=== PATIENT | female | born 1960 | race Caucasian/White ===

== ENCOUNTER 2020-06-01 12:35 | Emergency (ER) | payer OTHER ==
[2020-06-01 12:59] VITALS: O2SAT 99
--- NOTE | 2020-06-01 13:09 | ERPHSYRPT ---
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 This episode of chest pain was more sudden in onset approximate 1155 this afternoon it was in the center of her chest and described as a hot poker burning sensation that initially was 10 out of 10 and at the level of intensity. It then radiated into bilateral neck and bilateral shoulders. It significantly improved to a level of 3-4 out of 10 by the time she arrived in the emergency department. Patient states that she is under a lot of stress at this time. Patient has had a cardiac catheterization in the past and this was normal per her report. On 10/14/2019 patient underwent a chemical stress test and it was normal with a normal cardiac ejection fraction of 76% per the report. Patient's PCP is Dr. Villarreal. Timing/Duration: today Quality: burning, sharpness Location: substernal, central Chest Pain Radiation: neck, arm Severity of Pain-Max: moderate Severity of Pain-Current: mild Associated Symptoms: denies symptoms Prior Chest Pain/Cardiac Workup: cardiac cath Nitro Today/Relief: no nitro taken today Aspirin Treatment Today: no aspirin today (Patient is on Plavix. She also refuses aspirin today.) Allergies/Adverse Reactions: No Known Drug Allergies Allergy (Verified 12/13/15 06:20) Home Medications: Gabapentin [Neurontin] 600 mg PO DAILY 08/15/15 [History] Hyoscyamine Sulfate [Levsin] 0.125 mg PO QIDPRN PRN 08/15/15 [History] Pantoprazole Sodium [Protonix] 40 mg PO DAILY 08/15/15 [History] Ezetimibe 10 mg [Zetia 10 MG] 1 tab PO DAILY 12/07/15 [History] Rosuvastatin Calcium [Crestor] 1 tab PO DAILY 12/07/15 [History] Bupropion HCl Xl 150 mg [Wellbutrin XL 150 MG] 300 mg PO DAILY 06/01/20 [History] Clopidogrel Bisulfate 75 mg [PLAVIX 75 MG Tablet] 75 mg PO DAILY 06/01/20 [History] Venlafaxine HCl [Effexor Xr] 150 mg PO DAILY 06/01/20 [History] Hx Tetanus, Diphtheria Vaccination/Date Given: Yes Hx Influenza Vaccination/Date Given: Yes Hx Pneumococcal Vaccination/Date Given: No Travel Risk - International Travel Have you traveled outside of the country in past 3 weeks: No - Coronavirus Screening Are you exhibiting any of the following symptoms?: No Close contact with a COVID-19 positive Pt in past 14-21 Days: No - Review of Systems Constitutional: No Symptoms Eyes: No Symptoms Ears, Nose, & Throat: No Symptoms Respiratory: No Symptoms Cardiac: Chest Pain Abdominal/Gastrointestinal: No Symptoms Genitourinary Symptoms: No Symptoms Musculoskeletal: No Symptoms Skin: No Symptoms Neurological: No Symptoms Psychological: No Symptoms Endocrine: No Symptoms Hematologic/Lymphatic: No Symptoms Immunological/Allergic: No Symptoms All Other Systems: Reviewed and Negative - Past Medical History Pertinent Past Medical History: Yes Neurological History: Migraines, Peripheral Neuropathy ENT History: No Pertinent History Cardiac History: No Pertinent History Respiratory History: No Pertinent History Endocrine Medical History: No Pertinent History Musculoskeletal History: Degenerative Disk Disease, Fibromyalgia, Osteoarthritis GI Medical History: GERD, Irritable Bowel, Polyps, Ulcer History: Other Psycho-Social History: Depression Female Reproductive Disorders: Endometriosis Other Medical History: [facility] spotted fever, gotten by a tick, was very sick, in Hospital for 8-9 days. Used doxycycline - Past Surgical History Past Surgical History: Yes Neuro Surgical History: Other Cardiac: No Pertinent History, Cardiac Catheterization Respiratory: No Pertinent History Gastrointestinal: Cholecystectomy Genitourinary: No Pertinent History Musculoskeletal: No Pertinent History Female Surgical History: Section, Hysterectomy, Tubal Ligation Other Surgical History: left ear surgery patch, x two,tubal. d&c. colonoscopy x2-3 and. egd - Social History Smoking Status: Never smoker Exposure to second hand smoke: No Drug Use: none Patient Lives Alone: No - Nursing Vital Signs Nursing Vital Signs: Initial Vital Signs Temperature 98.5 F 06/01/20 12:35 Pulse Rate 75 06/01/20 12:35 Respiratory Rate 18 06/01/20 12:35 Blood Pressure 151/97 06/01/20 12:35 O2 Sat by Pulse Oximetry 99 06/01/20 12:35 Pain Scale Pain Intensity 6 - Physical Exam General Appearance: no apparent distress, alert, anxiety, thin Eye Exam: PERRL/EOMI, eyes nml inspection Ears, Nose, Throat Exam: normal ENT inspection, dry mucous membranes Neck Exam: normal inspection, non-tender, supple, full range of motion Respiratory Exam: normal breath sounds, chest tenderness, lungs clear, airway intact, No respiratory distress Cardiovascular Exam: regular rate/rhythm, normal heart sounds, normal peripheral pulses Gastrointestinal/Abdomen Exam: soft, normal bowel sounds, No tenderness Pelvic Exam: not done Rectal Exam: not done Back Exam: normal inspection, normal range of motion, No CVA tenderness, No vertebral tenderness Extremity Exam: normal inspection, normal range of motion, pelvis stable Neurologic Exam: alert, oriented x 3, cooperative, staff pharmacist II-XII nml as tested, normal mood/affect, nml cerebellar function, nml station & gait, sensation nml Skin Exam: normal color, warm, dry Lymphatic Exam: No adenopathy SpO2 Interpretation: normal SpO2: 99 O2 Delivery: Room Air - Course Nursing assessment & vital signs reviewed: Yes EKG Interpreted by Me: RATE ([id number]), Sinus Rhythm, NORMAL AXIS, NORMAL INTERVALS, NORMAL QRS, Other (No acute ischemic changes. There is no comparison EKG available.) Ordered Tests: Active Orders 24 hr Category Date Time Status EKG-ER Only STAT Care 06/01/20 13:09 Active IV Insertion STAT Care 06/01/20 13:09 Active Pulse Oximetry (ED) STAT Care 06/01/20 13:09 Active CHEST 1 VIEW (PORTABLE) Stat Exams 06/01/20 13:09 Completed CHEST WITH CONTRAST [CT] Stat Exams 06/01/20 14:10 Completed CBC W DIFF Stat Lab 06/01/20 13:20 Completed CMP Stat Lab 06/01/20 13:20 Completed D-DIMER QUANTITATIVE Stat Lab 06/01/20 13:20 Completed NT PRO BNP Stat Lab 06/01/20 13:20 Completed TROPONIN Q3H Lab 06/01/20 13:20 Completed TROPONIN Q3H Lab 06/01/20 16:15 Completed TROPONIN Q3H Lab 06/01/20 19:15 Ordered TROPONIN Q3H Lab 06/01/20 22:15 Ordered TROPONIN Q3H Lab 06/02/20 01:15 Ordered Medication Summary Discontinued Medications Generic Name Dose Route Start Last Admin Trade Name Freq PRN Reason Stop Dose Admin Sodium Chloride 500 mls @ 500 mls/hr 06/01/20 14:11 06/01/20 15:17 Sodium Chloride 0.9% 500 Ml IV 06/01/20 15:10 Infused .Q1H ONE Infusion Sodium Chloride Confirm 06/01/20 14:13 Sodium Chloride 0.9% 500 Ml Administered 06/01/20 14:14 Dose 500 mls @ ud IV .STK-MED ONE Lorazepam 1 mg 06/01/20 14:58 06/01/20 15:02 Ativan 2 Mg/1 Ml Vial IV 06/01/20 14:59 1 mg STAT ONE Administration Lorazepam Confirm 06/01/20 14:59 Ativan 2 Mg/1 Ml Vial Administered 06/01/20 15:00 Dose 2 mg .ROUTE .STK-MED ONE Morphine Sulfate 2 mg 06/01/20 14:02 06/01/20 14:17 Morphine Sulfate 2 Mg Inj IV 06/01/20 14:03 2 mg STAT ONE Administration Morphine Sulfate Confirm 06/01/20 14:13 Morphine Sulfate 2 Mg Inj Administered 06/01/20 14:14 Dose 2 mg .ROUTE .STK-MED ONE Ondansetron HCl 4 mg 06/01/20 14:02 06/01/20 14:17 Zofran 4 Mg/2 Ml Vial IV 06/01/20 14:03 4 mg STAT ONE Administration Ondansetron HCl Confirm 06/01/20 14:13 Zofran 4 Mg/2 Ml Vial Administered 06/01/20 14:14 Dose 4 mg .ROUTE .STK-MED ONE Ondansetron HCl 4 mg 06/01/20 16:56 06/01/20 17:18 Zofran 4 Mg/2 Ml Vial IV 06/01/20 16:57 Not Given STAT ONE Lab/Rad Data: Laboratory Result Diagrams 06/01/20 13:20 06/01/20 13:20 Laboratory Results 06/01/20 06/01/20 06/01/20 Range/Units 16:15 13:20 13:20 WBC (4.0-10.5) K/mm3 RBC (4.1-5.4) M/mm3 Hgb (12.0-16.0) gm/dl Hct (35-47) % MCV (78-100) fl MCH (26-32) pg MCHC (32-36) g/dl RDW (11.5-14.0) % Plt Count (150-450) K/mm3 MPV (7.5-11.0) fl Gran % (36.0-66.0) % Eos # (Auto) (0-0.5) Absolute Lymphs (auto) (1.0-4.6) Absolute Monos (auto) (0.0-1.3) Lymphocytes % (24.0-44.0) % Monocytes % (0.0-12.0) % Eosinophils % (0.00-5.0) % Basophils % (0.0-0.4) % Absolute Granulocytes (1.4-6.9) Basophils # (0-0.4) D-Dimer 734 H* (215-500) ng/mL Sodium (137-145) mmol/L Potassium (3.5-5.1) mmol/L Chloride (98-107) mmol/L Carbon Dioxide (22-30) mmol/L Anion Gap (5-15) MEQ/L BUN (7-17) mg/dL Creatinine (0.52-1.04) mg/dL Estimated GFR ML/MIN Glucose (74-106) mg/dL Calcium (8.4-10.2) mg/dL Total Bilirubin (0.2-1.3) mg/dL AST (14-36) U/L ALT (0-35) U/L Alkaline Phosphatase (38-126) U/L Troponin I < 0.012 < 0.012 (0.000-0.034) ng/mL NT-Pro-B Natriuret Pep (0-900) pg/mL Serum Total Protein (6.3-8.2) g/dL Albumin (3.5-5.0) g/dL 06/01/20 06/01/20 Range/Units 13:20 13:20 WBC 5.8 (4.0-10.5) K/mm3 RBC 4.37 (4.1-5.4) M/mm3 Hgb 13.2 (12.0-16.0) gm/dl Hct 40.3 (35-47) % MCV 92.2 (78-100) fl MCH 30.2 (26-32) pg MCHC 32.8 (32-36) g/dl RDW 13.3 (11.5-14.0) % Plt Count 215 (150-450) K/mm3 MPV 10.4 (7.5-11.0) fl Gran % 59.7 (36.0-66.0) % Eos # (Auto) 0.14 (0-0.5) Absolute Lymphs (auto) 1.69 (1.0-4.6) Absolute Monos (auto) 0.50 (0.0-1.3) Lymphocytes % 29.0 (24.0-44.0) % Monocytes % 8.6 (0.0-12.0) % Eosinophils % 2.4 (0.00-5.0) % Basophils % 0.3 (0.0-0.4) % Absolute Granulocytes 3.48 (1.4-6.9) Basophils # 0.02 (0-0.4) D-Dimer (215-500) ng/mL Sodium 134 L (137-145) mmol/L Potassium 3.7 (3.5-5.1) mmol/L Chloride 98 (98-107) mmol/L Carbon Dioxide 29 (22-30) mmol/L Anion Gap 11.1 (5-15) MEQ/L BUN 11 (7-17) mg/dL Creatinine 0.72 (0.52-1.04) mg/dL Estimated GFR > 60.0 ML/MIN Glucose 83 (74-106) mg/dL Calcium 9.5 (8.4-10.2) mg/dL Total Bilirubin 0.50 (0.2-1.3) mg/dL AST 73 H (14-36) U/L ALT 35 (0-35) U/L Alkaline Phosphatase 67 (38-126) U/L Troponin I (0.000-0.034) ng/mL NT-Pro-B Natriuret Pep 83.1 (0-900) pg/mL Serum Total Protein 7.6 (6.3-8.2) g/dL Albumin 4.6 (3.5-5.0) g/dL - Progress Progress: improved, re-examined Air Movement: good Progress Note: 06/01/20 14:09 Today's chest x-ray shows no acute cardiopulmonary process. 06/01/20 15:23 CAT scan of the chest with contrast reveals no pulmonary emboli. There is no acute pulmonary process present 06/01/20 17:05 Medical decision making: This patient is extremely anxious. Her chest pain has improved but not completely resolved. She is sleepy but completely arousable. She has had a clean cardiac catheterization as well as a negative cardiac stress test performed in September 2019. She has had 2 troponins that are now normal. She had an elevated D-dimer but the CTA of the chest revealed no pulmonary emboli. I contacted the patient's primary care physician, Dr. Villarreal. I reviewed the patient history, condition, EKG results, CTA results and the results of her labs. He feels that the patient does not need to be admitted for observation and rule out. This is based on the fact that she has had a normal, clean cardiac catheterization and a cardiac stress test that was negative. He is aware of both of these results. He feels that the patient can go home with a prescription for a few Ativan tablets. He states that she can follow-up in his office. She is to call his office tomorrow to make arranges for follow-up appo intment. 06/01/20 17:26 Medical decision making: I called the patient's fiber optics supervisor, Dr. Jung. I reviewed the patient history, condition, EKG findings, CTA of chest findings and the results of her laboratory work-up. He recommends providing the patient with a prescription for Lopressor 25 mg twice daily (short acting). He also recommends that the patient call his office tomorrow morning to make arranges for follow-up appointment. He also feels that the patient can be discharged to home in the recent normal cardiac catheterization and the normal cardiac stress test. Blood Culture(s) Obtained: No Antibiotics given: No Counseled pt/family regarding: lab results, diagnosis, need for follow-up, rad results - Departure Departure Disposition: Home Clinical Impression: Chest pain Condition: Stable Critical Care Time: No Referrals: ALEXI VILLARREAL MD [Primary Care Provider] - Additional Instructions: Take your new medication as prescribed beginning tomorrow morning. Follow-up with your fiber optics supervisor and primary care doctor for further management. Prescriptions: Lorazepam 0.5 mg [Ativan 0.5 MG] 0.5 mg PO Q12H PRN #3 tablet PRN Reason: Anxiety Metoprolol Tartrate 25 mg [Lopressor 25MG Tab] 25 mg PO BID #10 tab
[2020-06-01 13:33] LABS: Absolute Neutrophil Ct (ANC) 3.48 (1.4-6.9); BASOPHIL % 0.3 % (0.0-0.4); Basophil (Absolute #) 0.02 (0-0.4); Eosinophil % 2.4 % (0.00-5.0); Eosinophil (Absolute #) 0.14 (0-0.5); Hematocrit 40.3 % (35-47); Hemoglobin 13.2 gm/dl (12.0-16.0); Lymphocyte (Absolute #) 1.69 (1.0-4.6); Mean Cell Volume 92.2 fl (78-100); Mean Corpuscular Hemoglobin 30.2 pg (26-32); Mean Corpuscular Hgb Concent. 32.8 g/dl (32-36); Mean Platelet Volume 10.4 fl (7.5-11.0); Monocytes % 8.6 % (0.0-12.0); Neutrophil % 59.7 % (36.0-66.0); Platelet Count 215 K/mm3 (150-450); Red Blood Count 4.37 M/mm3 (4.1-5.4); Red Cell Distribution Width 13.3 % (11.5-14.0); White Blood Count 5.8 K/mm3 (4.0-10.5)
--- NOTE | 2020-06-01 13:35 | XRAY ---
Indication: Chest pain. Comparison: September 11, 2016. Portable chest again demonstrates normal heart and lungs with incidental tiny calcified granulomas. Bony thorax intact again with mild scoliosis. Impression: Continued nonacute chest with chronic features.
[2020-06-01] MEDS ORDERED: MORPHINE SULFATE 2 MG INJ IV ONE (14:02)
[2020-06-01] MEDS ORDERED: Zofran 4 MG/2 ML VIAL IV ONE ×2 (14:02→16:56)
[2020-06-01 14:04] LABS: ALBUMIN 4.6 g/dL (3.5-5.0); ALKALINE PHOSPHATASE 67 U/L (38-126); ANION GAP 11.1 MEQ/L (5-15); BLOOD UREA NITROGEN 11 mg/dL (7-17); CHLORIDE 98 mmol/L (98-107); Calcium 9.5 mg/dL (8.4-10.2); Carbon Dioxide 29 mmol/L (22-30); Creatinine 1 0.72 mg/dL (0.52-1.04); EST GLOMERULAR FILTRATION RATE > 60.0 ML/MIN; Glucose 83 mg/dL (74-106); NT PRO BNP 83.1 pg/mL (0-900); Potassium 3.7 mmol/L (3.5-5.1); SGOT/AST 73 U/L (14-36); SGPT/ALT 35 U/L (0-35); SODIUM 134 mmol/L (137-145); Total Protein 7.6 g/dL (6.3-8.2)
[2020-06-01] MEDS ORDERED: Sodium Chloride 0.9% 500 ML 500 ML IV ONE ×2 (14:11→14:13)
[2020-06-01] MEDS ORDERED: MORPHINE SULFATE 2 MG INJ ONE (14:13)
[2020-06-01] MEDS ORDERED: Zofran 4 MG/2 ML VIAL ONE (14:13)
[2020-06-01] MEDS ORDERED: Ativan 2 MG/1 ML VIAL IV ONE (14:58)
[2020-06-01] MEDS ORDERED: Ativan 2 MG/1 ML VIAL ONE (14:59)
--- NOTE | 2020-06-01 15:19 | XRAY ---
Indication: Chest pain. Elevated d-dimer. Multiple contiguous axial images obtained through the chest using 80 cc Isovue 370 contrast. Comparison: October 10, 2016. There is good opacification of the pulmonary arteries to include the lobar and segmental branches. No pulmonary embolus. Heart is not enlarged. Aorta is normal in course and caliber again with anatomic variant for aberrant right subclavian artery. Stable small mediastinal and bilateral hilar calcified nodes. No pathologic mediastinal/hilar lymphadenopathy. Lungs inflated again with tiny left upper and right lower lobe calcified granulomas and minimal bibasilar fibrosis/scarring. No suspicious pulmonary mass, infiltrate, or effusion. Bony thorax intact again with multilevel Schmorl nodes. Limited upper abdomen again demonstrates calcified spot granulomas and cholecystectomy clips. Impression: 1. Negative pulmonary embolus. 2. Again anatomic variant for aberrant right subclavian artery, chronic bony findings, and old granulomatous disease. 3. Remaining CT chest with contrast exam is negative.
[2020-06-01 17:33] VITALS: BP 130/85; PULSE 81
== END 2020-06-01 17:54 | disposition home or self-care (01) ==
LOC: ED 12:35
DX: R07.89 Other chest pain (principal); Z79.899 Other long term (current) drug therapy; Z79.01 Long term (current) use of anticoagulants
CPT/HCPCS: 36000; 36415; 71045; 71260; 80053; 83880; 84484; 85025; 85379; 93005; 94760; 96360; 96374; 96375; 99285; J2060; J2270; J2405

== ENCOUNTER 2022-07-14 15:41 | Inpatient (IN) | payer OTHER ==
--- NOTE | 2022-07-14 16:36 | ERPHSYRPT ---
- History of Present Illness Historian: patient Exam Limitations: no limitations Patient Subjective Stated Complaint: Pt c/o of pancreas pain that began today, pt did have nigerien food last night and had a abdoul Triage Nursing Assessment: Pt brought to the ER by EMS, hypertensive, rates pain as a 3 but it was a 10 before EMS picked her up and she took her medicine, pt has had chronic pancreatitis for over 10 years, no edema, has not eaten anything today, doesn't appear to be in any distress Physician History: 61 yo wf w epigastric pain x 90 minutes. Pain is currently 3/10 but was up to a 10. Pain occurred while at rest. Pt has a h/o recurrent pancreatitis. Pain radiates to her chest and back. She has had nausea wo vomiting. Pt states that she was mildly dyspneic w the pain. Fever/cough/coryza/diarrhea/melena/hematochezia/dysurian/hematuria all are denied. She has had a sarah/C-sec x2/TAHBSO. Timing/Duration: other (90 minutes) Activities at Onset: rest Quality: other (Pain) Abdominal Pain Onset Location: epigastric Pain Radiation: chest, back Severity of Pain-Max: severe Severity of Pain-Current: mild Modifying Factors: Improves With: nothing Associated Symptoms: back, chest pain, nausea Previous symptoms: same symptoms as today Allergies/Adverse Reactions: No Known Drug Allergies Allergy (Verified 07/14/22 15:56) Home Medications: Gabapentin [Neurontin] 600 mg PO UD 08/15/15 [History] Hyoscyamine Sulfate [Levsin] 0.125 mg PO QIDPRN PRN 08/15/15 [History] Pantoprazole Sodium [Protonix] 40 mg PO DAILY 08/15/15 [History] Ezetimibe 10 mg [Zetia 10 MG] 1 tab PO HS 12/07/15 [History] Rosuvastatin Calcium [Crestor] 10 mg PO HS 12/07/15 [History] Bupropion HCl Xl 150 mg [Wellbutrin XL 150 MG] 300 mg PO HS 06/01/20 [History] Clopidogrel Bisulfate [PLAVIX 75 MG Tablet] 37.5 mg PO DAILY 06/01/20 [H istory] Venlafaxine HCl [Effexor Xr] 150 mg PO DAILY 06/01/20 [History] Amlodipine Besylate 5 mg [Norvasc 5 mg] 2.5 mg PO DAILY 07/14/22 [History] Gabapentin [Neurontin ] 900 mg PO HS 07/14/22 [History] Hx Tetanus, Diphtheria Vaccination/Date Given: Yes Hx Influenza Vaccination/Date Given: Yes Hx Pneumococcal Vaccination/Date Given: No Travel Risk - International Travel Have you traveled outside of the country in past 3 weeks: No - Coronavirus Screening Are you exhibiting any of the following symptoms?: No Close contact with a COVID-19 positive Pt in past 14-21 Days: No - Vaccine Status Have you recieved a Covid-19 vaccination: Yes 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: [place] - Vaccination Dates Date of 2cond Vaccination (if applicable): 2020 - Review of Systems Constitutional: No Symptoms Eyes: No Symptoms Ears, Nose, & Throat: No Symptoms Respiratory: No Symptoms, Dyspnea Cardiac: No Symptoms, Chest Pain Abdominal/Gastrointestinal: No Symptoms, Abdominal Pain, Nausea Genitourinary Symptoms: No Symptoms Musculoskeletal: No Symptoms Skin: No Symptoms Neurological: No Symptoms Psychological: No Symptoms Endocrine: No Symptoms Hematologic/Lymphatic: No Symptoms Immunological/Allergic: No Symptoms - Past Medical History Pertinent Past Medical History: Yes Neurological History: Migraines, Peripheral Neuropathy ENT History: No Pertinent History Cardiac History: High Cholesterol, Hypertension Respiratory History: No Pertinent History Endocrine Medical History: No Pertinent History Musculoskeletal History: Arthritis, Osteoarthritis GI Medical History: GERD, Irritable Bowel, Polyps, Ulcer History: Other Psycho-Social History: Depression Female Reproductive Disorders: Endometriosis Other Medical History: Fibromyalgia - Past Surgical History Past Surgical History: Yes Neuro Surgical History: Other Cardiac: No Pertinent History, Cardiac Catheterization Respiratory: No Pertinent History Gastrointestinal: Cholecystectomy Genitourinary: No Pertinent History Musculoskeletal: No Pertinent History Female Surgical History: Section, Hysterectomy, Tubal Ligation Other Surgical History: left ear surgery patch, x two,tubal. d&c. colonoscopy x2-3 and. egd - Social History Smoking Status: Never smoker Exposure to second hand smoke: No Drug Use: none Patient Lives Alone: No - Nursing Vital Signs Nursing Vital Signs: Initial Vital Signs Temperature 97.7 F 07/14/22 15:42 Pulse Rate 71 07/14/22 15:42 Blood Pressure 150/89 07/14/22 15:42 O2 Sat by Pulse Oximetry 96 07/14/22 15:42 Pain Scale Pain Intensity 7 Hypertensive - Physical Exam General Appearance: no apparent distress Eye Exam: PERRL/EOMI, eyes nml inspection Ears, Nose, Throat Exam: normal ENT inspection, TMs normal, pharynx normal, moist mucous membranes Neck Exam: normal inspection, non-tender, supple, full range of motion, No meningismus, No mass, No Brudzinski, No Kernig's, No carotid bruit Respiratory Exam: normal breath sounds, lungs clear, airway intact Cardiovascular Exam: regular rate/rhythm, normal heart sounds, normal peripheral pulses, capillary refill <2 sec, No murmur Gastrointestinal/Abdomen Exam: soft, normal bowel sounds, tenderness (Moderate epigastric TTP wo guarding or rebound) Back Exam: normal inspection, normal range of motion, vertebral tenderness, No CVA tenderness Extremity Exam: normal inspection, normal range of motion Neurologic Exam: alert, oriented x 3, cooperative, 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, normal mood/affect, nml cerebellar function, nml station & gait, sensation nml, No motor deficits, No sensory deficit Skin Exam: normal color, warm, dry Lymphatic Exam: No adenopathy SpO2 Interpretation: normal SpO2: 96 O2 Delivery: Room Air - Course Nursing assessment & vital signs reviewed: Yes EKG Interpreted by Me: RATE (NSR/Rate70/Normal QT-QTc/Flat Twaves/No acute ST degment abnormalities/EKG#2/NSR/Rate72/Normal QT-QTc/Flat Twaves/No acute ST segment changes) - CT Exams Abdomen/Pelvis CT Interpretation: Tele-radiologist Report (CT ab-pelvis w IV [id number] changes/Nothing acute) Ordered Tests: Active Orders 24 hr Category Date Time Status EKG-ER Only STAT Care 07/14/22 16:48 Completed NPO Diet 07/14/22 20:58 Active ABDOMEN AND PELVIS W CONTRAST [CT] Stat Exams 07/14/22 17:34 Completed AMYLASE AM.LAB Lab 07/16/22 04:00 Ordered AMYLASE Stat Lab 07/14/22 16:15 Completed AMYLASE Stat Lab 07/14/22 19:00 Completed CBC W DIFF AM.LAB Lab 07/15/22 04:00 Ordered CBC W DIFF Stat Lab 07/14/22 16:15 Completed CMP AM.LAB Lab 07/15/22 04:00 Ordered CMP Stat Lab 07/14/22 16:15 Completed CMP Stat Lab 07/14/22 19:00 Completed LIPASE AM.LAB Lab 07/16/22 04:00 Ordered LIPASE Stat Lab 07/14/22 16:15 Completed LIPASE Stat Lab 07/14/22 19:00 Completed TROPONIN Q4H Lab 07/14/22 16:15 Completed TROPONIN Q4H Lab 07/14/22 18:54 Completed TROPONIN Q4H Lab 07/15/22 00:15 Ordered UA W/RFX UR CULTURE Stat Lab 07/14/22 16:03 Ordered Transfer Order Routine Transfer 07/14/22 Completed Medication Summary Generic Name Dose Route Start Last Admin Trade Name [place] PRN Reason Stop Dose Admin Hydromorphone HCl 1 mg 07/14/22 20:57 07/14/22 22:24 Hydromorphone 1 Mg/1ml Inj 1 Mg/Ml Syringe IV 07/19/22 20:56 1 mg Q4H PRN PRN Administration PAIN Sodium Chloride 1,000 mls @ 100 mls/hr 07/14/22 21:00 07/14/22 22:25 Sodium Chloride 0.9% 1000 Ml IV 08/13/22 20:59 100 mls/hr .Q10H CYRIL Administration Ondansetron HCl 4 mg 07/14/22 20:57 Ondansetron Hcl 4 Mg/2 Ml Vial IV 08/13/22 20:56 Q6H PRN PRN NAUSEA/VOMITING Discontinued Medications Generic Name Dose Route Start Last Admin Trade Name Phoenix PRN Reason Stop Dose Admin Fentanyl Citrate 50 mcg 07/14/22 16:38 07/14/22 16:45 Fentanyl Citrate 100 Mcg/2 Ml* Vial IV 07/14/22 16:39 50 mcg STAT ONE Administration Fentanyl Citrate Confirm 07/14/22 16:43 Fentanyl Citrate 100 Mcg/2 Ml* Vial Administered 07/14/22 16:44 Dose 100 mcg .ROUTE .STK-MED ONE Hydromorphone HCl 0.5 mg 07/14/22 17:09 07/14/22 17:15 Hydromorphone 1 Mg/1ml Inj 1 Mg/Ml Syringe IV 07/14/22 17:10 0.5 mg STAT ONE Administration Hydromorphone HCl Confirm 07/14/22 17:14 Hydromorphone 1 Mg/1ml Inj 1 Mg/Ml Syringe Administered 07/14/22 17:15 Dose 1 mg .ROUTE .STK-MED ONE Sodium Chloride 1,000 mls @ 999 mls/hr 07/14/22 17:24 07/14/22 21:53 Sodium Chloride 0.9% 1000 Ml IV 07/14/22 18:24 Infused .Q1H1M STA Infusion Sodium Chloride Confirm 07/14/22 17:29 Sodium Chloride 0.9% 1000 Ml Administered 07/14/22 17:30 Dose 1,000 mls @ ud .ROUTE .STK-MED ONE Ketorolac Tromethamine 15 mg 07/14/22 19:29 07/14/22 19:33 Ketorolac Tromethamine 30 Mg/Ml Inj IV 07/14/22 19:30 15 mg STAT ONE Administration Ketorolac Tromethamine Confirm 07/14/22 19:31 Ketorolac Tromethamine 30 Mg/Ml Inj Administered 07/14/22 19:32 Dose 30 mg .ROUTE .STK-MED ONE Ondansetron HCl 4 mg 07/14/22 16:38 07/14/22 16:45 Ondansetron Hcl 4 Mg/2 Ml Vial IV 07/14/22 16:39 4 mg STAT ONE Administration Ondansetron HCl Confirm 07/14/22 16:42 Ondansetron Hcl 4 Mg/2 Ml Vial Administered 07/14/22 16:43 Dose 4 mg .ROUTE .STK-MED ONE Lab/Rad Data: Laboratory Result Diagrams 07/14/22 16:15 07/14/22 19:00 Laboratory Results 07/14/22 07/14/22 07/14/22 Range/Units 20:54 19:00 18:54 WBC (4.0-10.5) x10^3/uL RBC (4.1-5.4) x10^6/uL Hgb (12.0-16.0) g/dL Hct (35-47) % MCV (78-100) fL MCH (26-32) pg MCHC (32-36) g/dL RDW (11.5-14.0) % Plt Count (150-450) x10^3/uL MPV (7.5-11.0) fL Gran % (36.0-66.0) % Immature Gran % (Auto) (0.00-0.4) % Nucleat RBC Rel Count (0.00-0.1) % Eos # (Auto) (0-0.5) x10^3/uL Immature Gran # (Auto) (0.00-0.03) x10^3u/L Absolute Lymphs (auto) (1.0-4.6) x10^3/uL Absolute Monos (auto) (0.0-1.3) x10^3/uL Absolute Nucleated RBC (0.00-0.01) x10^3u/L Lymphocytes % (24.0-44.0) % Monocytes % (0.0-12.0) % Eosinophils % (0.00-5.0) % Basophils % (0.0-0.4) % Absolute Granulocytes (1.4-6.9) x10^3/uL Basophils # (0-0.4) x10^3/uL Sodium 136 L (137-145) mmol/L Potassium 3.7 (3.5-5.1) mmol/L Chloride 102 (98-107) mmol/L Carbon Dioxide 27 (22-30) mmol/L Anion Gap 10.8 (5-15) MEQ/L BUN 9 (7-17) mg/dL Creatinine 0.63 (0.52-1.04) mg/dL Estimated GFR > 60.0 ML/MIN Glucose 84 (74-106) mg/dL Calcium 8.1 L (8.4-10.2) mg/dL Total Bilirubin 0.80 (0.2-1.3) mg/dL AST 289 H (14-36) U/L ALT 114 H (0-35) U/L Alkaline Phosphatase 147 H (38-126) U/L Troponin I < 0.012 (0.000-0.034) ng/mL Serum Total Protein 7.1 (6.3-8.2) g/dL Albumin 3.8 (3.5-5.0) g/dL Amylase 331 H (30-110) U/L Lipase 4822 H (23-300) U/L Influenza Type A Ag NEGATIVE (NEGATIVE) Influenza Type B Ag NEGATIVE (NEGATIVE) RSV (PCR) NEGATIVE (Negative) SARS-CoV-2 (PCR) NEGATIVE (NEGATIVE) 07/14/22 07/14/22 07/14/22 Range/Units 16:15 16:15 16:15 WBC 7.2 (4.0-10.5) x10^3/uL RBC 4.32 (4.1-5.4) x10^6/uL Hgb 12.4 (12.0-16.0) g/dL Hct 38.2 (35-47) % MCV 88.4 (78-100) fL MCH 28.7 (26-32) pg MCHC 32.5 (32-36) g/dL RDW 14.4 H (11.5-14.0) % Plt Count 249 (150-450) x10^3/uL MPV 9.9 (7.5-11.0) fL Gran % 78.1 H (36.0-66.0) % Immature Gran % (Auto) 0.1 (0.00-0.4) % Nucleat RBC Rel Count 0.0 (0.00-0.1) % Eos # (Auto) 0.17 (0-0.5) x10^3/uL Immature Gran # (Auto) 0.01 (0.00-0.03) x10^3u/L Absolute Lymphs (auto) 0.96 L (1.0-4.6) x10^3/uL Absolute Monos (auto) 0.42 (0.0-1.3) x10^3/uL Absolute Nucleated RBC 0.00 (0.00-0.01) x10^3u/L Lymphocytes % 13.3 L (24.0-44.0) % Monocytes % 5.8 (0.0-12.0) % Eosinophils % 2.4 (0.00-5.0) % Basophils % 0.3 (0.0-0.4) % Absolute Granulocytes 5.63 (1.4-6.9) x10^3/uL Basophils # 0.02 (0-0.4) x10^3/uL Sodium 135 L (137-145) mmol/L Potassium 3.7 (3.5-5.1) mmol/L Chloride 99 (98-107) mmol/L Carbon Dioxide 25 (22-30) mmol/L Anion Gap 13.9 (5-15) MEQ/L BUN 10 (7-17) mg/dL Creatinine 0.63 (0.52-1.04) mg/dL Estimated GFR > 60.0 ML/MIN Glucose 81 (74-106) mg/dL Calcium 8.9 (8.4-10.2) mg/dL Total Bilirubin 0.60 (0.2-1.3) mg/dL AST 66 H (14-36) U/L ALT 31 (0-35) U/L Alkaline Phosphatase 124 (38-126) U/L Troponin I < 0.012 (0.000-0.034) ng/mL Serum Total Protein 7.8 (6.3-8.2) g/dL Albumin 4.2 (3.5-5.0) g/dL Amylase 76 (30-110) U/L Lipase 149 (23-300) U/L Influenza Type A Ag (NEGATIVE) Influenza Type B Ag (NEGATIVE) RSV (PCR) (Negative) SARS-CoV-2 (PCR) (NEGATIVE) - Progress Progress: improved Progress Note: 07/14/22 16:39 Pt initially refused pain meds but later pain escalated, so 50mcg IV Fentanyl/4mg IV Zofran given 07/14/22 16:40 Nursing note and vital signs reviewed No food or housing insecurities noted Minimal improvement w 50mcg IV Fentanyl/4mg IV Zofran Moderate improvement w 0.5mg IV Dilaudid 1L NS bolus Obs per Dr. Orozco 15mg IV toradol Full code per pt After further history from , it appears that pt drinks alcohol 3-4 times a week 07/14/22 23:04 Discussed with : Laura Will see patient in: hospital (observation) Counseled pt/family regarding: lab results, diagnosis, rad results - Departure Departure Disposition: Observation Clinical Impression: Pancreatitis Condition: Stable Critical Care Time: No
[2022-07-14] MEDS ORDERED: Zofran 4 MG/2 ML VIAL IV ONE (16:38)
[2022-07-14] MEDS ORDERED: SUBLIMAZE 100 MCG/2 ML IV ONE (16:38)
[2022-07-14 16:41] LABS: Absolute Neutrophil Ct (ANC) 5.63 x10^3/uL (1.4-6.9); BASOPHIL % 0.3 % (0.0-0.4); Basophil (Absolute #) 0.02 x10^3/uL (0-0.4); Eosinophil % 2.4 % (0.00-5.0); Eosinophil (Absolute #) 0.17 x10^3/uL (0-0.5); Hematocrit 38.2 % (35-47); Hemoglobin 12.4 g/dL (12.0-16.0); IMMATURE GRAN # 0.01 x10^3u/L (0.00-0.03); IMMATURE GRAN % 0.1 % (0.00-0.4); Lymphocyte (Absolute #) 0.96 x10^3/uL (1.0-4.6); Lymphocytes % 13.3 % (24.0-44.0); Mean Cell Volume 88.4 fL (78-100); Mean Corpuscular Hemoglobin 28.7 pg (26-32); Mean Corpuscular Hgb Concent. 32.5 g/dL (32-36); Mean Platelet Volume 9.9 fL (7.5-11.0); Monocyte (Absolute #) 0.42 x10^3/uL (0.0-1.3); Monocytes % 5.8 % (0.0-12.0); Neutrophil % 78.1 % (36.0-66.0); Platelet Count 249 x10^3/uL (150-450); Red Blood Count 4.32 x10^6/uL (4.1-5.4); Red Cell Distribution Width 14.4 % (11.5-14.0); White Blood Count 7.2 x10^3/uL (4.0-10.5)
[2022-07-14] MEDS ORDERED: Zofran 4 MG/2 ML VIAL ONE (16:42)
[2022-07-14] MEDS ORDERED: SUBLIMAZE 100 MCG/2 ML ONE (16:43)
[2022-07-14 16:48] LABS: ALBUMIN 4.2 g/dL (3.5-5.0); ALKALINE PHOSPHATASE 124 U/L (38-126); AMYLASE 76 U/L (30-110); ANION GAP 13.9 MEQ/L (5-15); BLOOD UREA NITROGEN 10 mg/dL (7-17); CHLORIDE 99 mmol/L (98-107); Calcium 8.9 mg/dL (8.4-10.2); Carbon Dioxide 25 mmol/L (22-30); Creatinine 1 0.63 mg/dL (0.52-1.04); EST GLOMERULAR FILTRATION RATE > 60.0 ML/MIN; Glucose 81 mg/dL (74-106); LIPASE 149 U/L (23-300); Potassium 3.7 mmol/L (3.5-5.1); SGOT/AST 66 U/L (14-36); SGPT/ALT 31 U/L (0-35); SODIUM 135 mmol/L (137-145); Total Protein 7.8 g/dL (6.3-8.2)
[2022-07-14] MEDS ORDERED: Hydromorphone 1 mg/ml Injection IV ONE (17:09)
[2022-07-14] MEDS ORDERED: Hydromorphone 1 mg/ml Injection ONE (17:14)
[2022-07-14] MEDS ORDERED: Sodium Chloride 0.9% 1000 ML 1,000 ML IV STA (17:24)
[2022-07-14] MEDS ORDERED: Sodium Chloride 0.9% 1000 ML 1,000 ML ONE (17:29)
--- NOTE | 2022-07-14 19:28 | XRAY ---
Indication: Abdomen pain. Pancreatitis. Multiple contiguous axial images obtained through the abdomen and pelvis 80 cc Isovue 370 contrast. Comparison: May 12, 2013 Lung bases demonstrates dependent atelectasis. Tiny right posterior gutter calcified granuloma. Heart not enlarged. Noncontrasted stomach and bowel loops appear nonobstructed. Appendectomy, cholecystectomy, and hysterectomy reported. Prominent biliary tree, not unusual for cholecystectomy patient. No free fluid/air. Incidental splenic calcified granulomas. Remaining liver, pancreas, spleen, adrenal glands, kidneys, ureters, and bladder are unremarkable. Minimal aortic calcifications. No AAA or pathological retroperitoneal lymphadenopathy. Osseous structures intact with minimal degenerative changes throughout the spine and multilevel thoracolumbar Schmorl nodes, largest T10. Impression: 1. Chronic findings including arteriosclerotic disease, chronic bony findings, and old granulomatous disease. 2. Remaining CT abdomen/pelvis with contrast exam is negative. Comment: Preliminary interpretation made by [facility]. No critical discrepancy.
[2022-07-14] MEDS ORDERED: TORAdol 30 mg Injection IV ONE (19:29)
[2022-07-14] MEDS ORDERED: TORAdol 30 mg Injection ONE (19:31)
[2022-07-14 19:38] LABS: ALBUMIN 3.8 g/dL (3.5-5.0); ALKALINE PHOSPHATASE 147 U/L (38-126); AMYLASE 331 U/L (30-110); ANION GAP 10.8 MEQ/L (5-15); BLOOD UREA NITROGEN 9 mg/dL (7-17); CHLORIDE 102 mmol/L (98-107); Calcium 8.1 mg/dL (8.4-10.2); Carbon Dioxide 27 mmol/L (22-30); Creatinine 1 0.63 mg/dL (0.52-1.04); EST GLOMERULAR FILTRATION RATE > 60.0 ML/MIN; Glucose 84 mg/dL (74-106); Potassium 3.7 mmol/L (3.5-5.1); SGOT/AST 289 U/L (14-36); SGPT/ALT 114 U/L (0-35); SODIUM 136 mmol/L (137-145); Total Protein 7.1 g/dL (6.3-8.2)
[2022-07-14 19:56] LABS: LIPASE 4822 U/L (23-300)
[2022-07-14] MEDS ORDERED: Zofran 4 MG/2 ML VIAL IV PRN (20:57)
[2022-07-14 21:33] LABS: INFLUENZA A NEGATIVE (NEGATIVE); INFLUENZA B NEGATIVE (NEGATIVE); RESPIRATORY SYNCTIAL VIRUS NEGATIVE (Negative); SARS-CoV-2 Xpert Express NEGATIVE (NEGATIVE)
[2022-07-14] MEDS: Hydromorphone 1 mg/ml Injection IV PRN (22:24)
[2022-07-14] MEDS: Sodium Chloride 0.9% 1000 ML 1,000 ML IV SCH (22:25)
[2022-07-15 05:00] LABS: Absolute Neutrophil Ct (ANC) 3.15 x10^3/uL (1.4-6.9); BASOPHIL % 0.5 % (0.0-0.4); Basophil (Absolute #) 0.02 x10^3/uL (0-0.4); Eosinophil % 2.7 % (0.00-5.0); Eosinophil (Absolute #) 0.12 x10^3/uL (0-0.5); Hematocrit 39.8 % (35-47); Hemoglobin 12.8 g/dL (12.0-16.0); IMMATURE GRAN # 0.01 x10^3u/L (0.00-0.03); IMMATURE GRAN % 0.2 % (0.00-0.4); Lymphocyte (Absolute #) 0.78 x10^3/uL (1.0-4.6); Lymphocytes % 17.7 % (24.0-44.0); Mean Cell Volume 89.6 fL (78-100); Mean Corpuscular Hemoglobin 28.8 pg (26-32); Mean Corpuscular Hgb Concent. 32.2 g/dL (32-36); Mean Platelet Volume 10.1 fL (7.5-11.0); Monocyte (Absolute #) 0.33 x10^3/uL (0.0-1.3); Monocytes % 7.5 % (0.0-12.0); Neutrophil % 71.4 % (36.0-66.0); Platelet Count 227 x10^3/uL (150-450); Red Blood Count 4.44 x10^6/uL (4.1-5.4); Red Cell Distribution Width 14.7 % (11.5-14.0); White Blood Count 4.4 x10^3/uL (4.0-10.5)
[2022-07-15 06:15] LABS: ALBUMIN 3.7 g/dL (3.5-5.0); ALKALINE PHOSPHATASE 209 U/L (38-126); ANION GAP 10.4 MEQ/L (5-15); BLOOD UREA NITROGEN 8 mg/dL (7-17); CHLORIDE 104 mmol/L (98-107); Calcium 8.5 mg/dL (8.4-10.2); Carbon Dioxide 27 mmol/L (22-30); EST GLOMERULAR FILTRATION RATE > 60.0 ML/MIN; Glucose 90 mg/dL (74-106); Potassium 3.8 mmol/L (3.5-5.1); SGOT/AST 635 U/L (14-36); SGPT/ALT 323 U/L (0-35); SODIUM 138 mmol/L (137-145)
[2022-07-15] MEDS: Sodium Chloride 0.9% 1000 ML 1,000 ML IV SCH ×2 (08:15→19:52)
[2022-07-15] MEDS: Hydromorphone 1 mg/ml Injection IV PRN ×2 (09:24→15:13)
[2022-07-15 10:15] LABS: Appearance Clear (Clear); Bacteria None Seen /HPF (None Seen); Bilirubin Negative (Negative); Blood Negative (Negative); Epithelial Cells None Seen /HPF (None Seen); Glucose, Urine Negative (Negative); Hyaline Casts NONE SEEN /LPF (0-2); Ketones Negative (Negative); Leukocyte Esterase Negative (Negative); Nitrite Negative (Negative); Protein,Urine Dip Negative (Negative); RBC 0-2 /HPF (0-5); Specific Gravity 1.025 (1.005-1.030); WBC 0-2 /HPF (0-5)
[2022-07-15 10:18] LABS: ADD URINE CULTURE? NO (NO)
[2022-07-15] MEDS ORDERED: HYOSCYAMINE SULFATE 0.125 MG PO PRN (13:42)
[2022-07-15] MEDS ORDERED: NON-FORMULARY ITEM (Gabapentin [Neurontin] 600 MG Tablet) PO SCH (13:45)
[2022-07-15] MEDS: NORVASC 5 MG PO SCH (15:13)
[2022-07-15] MEDS: PLAVIX Tablet PO SCH (15:14)
[2022-07-15] MEDS: Effexor XR 75 MG PO SCH (15:14)
[2022-07-15] MEDS: NEURONTIN PO SCH (15:14)
[2022-07-15] MEDS: Protonix 40MG Tablet PO SCH (15:15)
--- NOTE | 2022-07-15 18:08 | PCM.HP ---
History of Present Illness - Chief Complaint Chief Complaint: pancreatitis History of Present Illness: is a 61 year old female pt of Dr. Butler with hx of chronic neck pain, chronic back pain, HTN, GERD, HLD, migraine, anxiety, panic attack, and fibromyalgia who was admitted through ER with acute pancreatitis. Her lipase was 4822. WBC 7.2. She was admitted, given IV fluids and pain meds. She was initially given IV fentanyl, which only helped minimally. IV toradol also ordered. IV dilaudid has helped the most. She has had issues off and on since 2013, when she had [place] Spotted Fever. She had to see GI DrGeetha (Noel) in [facility] afterward with pancreas issues - wanted to do a procedure at that time but pt didn't want it. Pt returned to her in 2016; was on hyosciamine and started taking it prn and has been doing well since yesterday. She ate malagasy food with a small abdoul and started having epigstric pain, can't describe it, radiating to chest/back/L upper arm. Had N, no vomiting. Mild SOB. Dizziness. Dx2d, watery. Currently pain 3-09/02, after pain meds. W/o dilaudid, 12/02. - Review of Systems Abdominal/Gastrointestinal: Abdominal Pain, Nausea, Diarrhea Musculoskeletal: Joint Pain (sprained L ankle 1.5 wks ago) Neurological: Dizziness Psychological: Anxiety, Depression, No Suicidal Ideations, No Homicidal Ideations Medications & Allergies Home Medications: Home Medication List Gabapentin [Neurontin] 600 mg PO UD 08/15/15 [History Confirmed 07/14/22] Hyoscyamine Sulfate [Levsin] 0.125 mg PO QIDPRN PRN 08/15/15 [History Confirmed 07/14/22] Pantoprazole Sodium [Protonix] 40 mg PO DAILY 08/15/15 [History Confirmed 07/14/22] Ezetimibe 10 mg [Zetia 10 MG] 1 tab PO HS 12/07/15 [History Confirmed 07/14/22] Rosuvastatin Calcium [Crestor] 10 mg PO HS 12/07/15 [History Confirmed 07/14/22] Bupropion HCl Xl 150 mg [Wellbutrin XL 150 MG] 300 mg PO HS 06/01/20 [History Confirmed 07/14/22] Clopidogrel Bisulfate [PLAVIX 75 MG Tablet] 37.5 mg PO DAILY 06/01/20 [History Confirmed 07/14/22] Metoprolol Tartrate 25 mg [Lopressor 25MG Tab] 25 mg PO BID #10 tab 06/01/20 [Rx Confirmed 07/14/22] Venlafaxine HCl [Effexor Xr] 150 mg PO DAILY 06/01/20 [History Confirmed 07/14/22] Amlodipine Besylate 5 mg [Norvasc 5 mg] 2.5 mg PO DAILY 07/14/22 [History Confirmed 07/14/22] Gabapentin [Neurontin ] 900 mg PO HS 07/14/22 [History Confirmed 07/14/22] Allergies/Adverse Reactions: Allergies Allergy/AdvReac Type Severity Reaction Status Date / Time No Known Drug Allergies Allergy Verified 07/14/22 15:56 - Past Medical History Past Medical History: Yes Neurological History: Migraines, Peripheral Neuropathy ENT History: No Pertinent History Cardiac History: High Cholesterol, Hypertension Respiratory History: No Pertinent History Endocrine Medical History: No Pertinent History Musculoskelatal History: Arthritis, Osteoarthritis GI Medical History: GERD, Irritable Bowel, Polyps, Ulcer History: Other Pyscho-Social History: Depression Reproductive Disorders: Endometriosis Comment: Fibromyalgia - Female History Are you now?: No - Past Surgical History Past Surgical History: Yes Neuro Surgical History: Other Cardiac History: No Pertinent History, Cardiac Catheterization Respiratory Surgery: No Pertinent History GI Surgical History: Cholecystectomy Genitourinary Surgical Hx: No Pertinent History Musculskeletal Surgical Hx: No Pertinent History Female Surgical History: Section, Hysterectomy, Tubal Ligation Other Surgical History: left ear surgery patch, x two,tubal. d&c. colonoscopy x2-3 and. egd - Social History Smoking Status: Never smoker Exposure to second hand smoke: No Alcohol: Occasionally Drug Use: none - Physical Exam Vital Signs: Vital Signs - 24 hr Temp Pulse Resp BP Pulse Ox 07/15/22 16:52 93 L 07/15/22 16:00 98.1 F 67 18 139/67 92 L 07/15/22 12:00 17 07/15/22 11:19 98.0 F 67 16 104/55 93 L 07/15/22 08:00 16 07/15/22 07:31 98 07/15/22 07:24 97.6 F 63 16 126/74 97 07/15/22 04:00 97.8 F 71 16 123/73 98 07/15/22 00:00 98.3 F 64 118/77 96 07/14/22 23:06 96 07/14/22 22:28 98.3 F 64 16 118/77 95 07/14/22 20:11 69 16 111/74 93 L 07/14/22 19:37 73 16 113/82 94 L 07/14/22 19:19 73 17 93 L General Appearance: no apparent distress, alert Neurologic Exam: oriented x 3, cooperative Eye Exam: eyes nml inspection Ears, Nose, Throat Exam: moist mucous membranes Neck Exam: normal inspection, non-tender, No lymphadenopathy, No subcutaneous emphysema, No thyromegaly Respiratory Exam: normal breath sounds, lungs clear, No crackles/rales, No rhonchi, No wheezing Cardiovascular Exam: regular rate/rhythm, normal heart sounds, No murmur Gastrointestinal/Abdomen Exam: soft, normal bowel sounds, tenderness (RUQ, epigastrum), No distention, No mass, No guarding, No rebound Back Exam: normal inspection, No CVA tenderness, No rash Extremity Exam: normal inspection, No pedal edema, No swelling Skin Exam: normal color, warm, dry, No rash Results - Labs Lab/Micro Results: Lab Results-Last 24 Hours 07/14/22 07/14/22 07/14/22 Range/Units 09:30 18:54 19:00 WBC (4.0-10.5) x10^3/uL RBC (4.1-5.4) x10^6/uL Hgb (12.0-16.0) g/dL Hct (35-47) % MCV (78-100) fL MCH (26-32) pg MCHC (32-36) g/dL RDW (11.5-14.0) % Plt Count (150-450) x10^3/uL MPV (7.5-11.0) fL Gran % (36.0-66.0) % Immature Gran % (Auto) (0.00-0.4) % Nucleat RBC Rel Count (0.00-0.1) % Eos # (Auto) (0-0.5) x10^3/uL Immature Gran # (Auto) (0.00-0.03) x10^3u/L Absolute Lymphs (auto) (1.0-4.6) x10^3/uL Absolute Monos (auto) (0.0-1.3) x10^3/uL Absolute Nucleated RBC (0.00-0.01) x10^3u/L Lymphocytes % (24.0-44.0) % Monocytes % (0.0-12.0) % Eosinophils % (0.00-5.0) % Basophils % (0.0-0.4) % Absolute Granulocytes (1.4-6.9) x10^3/uL Basophils # (0-0.4) x10^3/uL Sodium 136 L (137-145) mmol/L Potassium 3.7 (3.5-5.1) mmol/L Chloride 102 (98-107) mmol/L Carbon Dioxide 27 (22-30) mmol/L Anion Gap 10.8 (5-15) MEQ/L BUN 9 (7-17) mg/dL Creatinine 0.63 (0.52-1.04) mg/dL Estimated GFR > 60.0 ML/MIN Glucose 84 (74-106) mg/dL Calcium 8.1 L (8.4-10.2) mg/dL Total Bilirubin 0.80 (0.2-1.3) mg/dL AST 289 H (14-36) U/L ALT 114 H (0-35) U/L Alkaline Phosphatase 147 H (38-126) U/L Troponin I < 0.012 (0.000-0.034) ng/mL Serum Total Protein 7.1 (6.3-8.2) g/dL Albumin 3.8 (3.5-5.0) g/dL Amylase 331 H (30-110) U/L Lipase 4822 H (23-300) U/L Urine Color Dark Yellow A (Yellow) Urine Appearance Clear (Clear) Urine pH 6.0 (4.6-8.0) Ur Specific [place] 1.025 (1.005-1.030) Urine Protein Negative (Negative) Urine Glucose (UA) Negative (Negative) mg/dL Urine Ketones Negative (Negative) Urine Blood Negative (Negative) Urine Nitrite Negative (Negative) Urine Bilirubin Negative (Negative) Urine Urobilinogen 2.0 A (0.2) mg/dL Ur Leukocyte Esterase Negative (Negative) U Hyaline Cast (Auto) NONE SEEN (0-2) /LPF Urine Microscopic RBC 0-2 (0-5) /HPF Urine Microscopic WBC 0-2 (0-5) /HPF Ur Epithelial Cells None Seen (None Seen) /HPF Urine Bacteria None Seen (None Seen) /HPF Urine Culture Reflexed NO (NO) Influenza Type A Ag (NEGATIVE) Influenza Type B Ag (NEGATIVE) RSV (PCR) (Negative) SARS-CoV-2 (PCR) (NEGATIVE) 07/14/22 07/15/22 07/15/22 Range/Units 20:54 04:45 04:45 WBC 4.4 (4.0-10.5) x10^3/uL RBC 4.44 (4.1-5.4) x10^6/uL Hgb 12.8 (12.0-16.0) g/dL Hct 39.8 (35-47) % MCV 89.6 (78-100) fL MCH 28.8 (26-32) pg MCHC 32.2 (32-36) g/dL RDW 14.7 H (11.5-14.0) % Plt Count 227 (150-450) x10^3/uL MPV 10.1 (7.5-11.0) fL Gran % 71.4 H (36.0-66.0) % Immature Gran % (Auto) 0.2 (0.00-0.4) % Nucleat RBC Rel Count 0.0 (0.00-0.1) % Eos # (Auto) 0.12 (0-0.5) x10^3/uL Immature Gran # (Auto) 0.01 (0.00-0.03) x10^3u/L Absolute Lymphs (auto) 0.78 L (1.0-4.6) x10^3/uL Absolute Monos (auto) 0.33 (0.0-1.3) x10^3/uL Absolute Nucleated RBC 0.00 (0.00-0.01) x10^3u/L Lymphocytes % 17.7 L (24.0-44.0) % Monocytes % 7.5 (0.0-12.0) % Eosinophils % 2.7 (0.00-5.0) % Basophils % 0.5 (0.0-0.4) % Absolute Granulocytes 3.15 (1.4-6.9) x10^3/uL Basophils # 0.02 (0-0.4) x10^3/uL Sodium (137-145) mmol/L Potassium (3.5-5.1) mmol/L Chloride (98-107) mmol/L Carbon Dioxide (22-30) mmol/L Anion Gap (5-15) MEQ/L BUN (7-17) mg/dL Creatinine (0.52-1.04) mg/dL Estimated GFR ML/MIN Glucose (74-106) mg/dL Calcium (8.4-10.2) mg/dL Total Bilirubin (0.2-1.3) mg/dL AST (14-36) U/L ALT (0-35) U/L Alkaline Phosphatase (38-126) U/L Troponin I < 0.012 (0.000-0.034) ng/mL Serum Total Protein (6.3-8.2) g/dL Albumin (3.5-5.0) g/dL Amylase (30-110) U/L Lipase (23-300) U/L Urine Color (Yellow) Urine Appearance (Clear) Urine pH (4.6-8.0) Ur Specific [place] (1.005-1.030) Urine Protein (Negative) Urine Glucose (UA) (Negative) mg/dL Urine Ketones (Negative) Urine Blood (Negative) Urine Nitrite (Negative) Urine Bilirubin (Negative) Urine Urobilinogen (0.2) mg/dL Ur Leukocyte Esterase (Negative) U Hyaline Cast (Auto) (0-2) /LPF Urine Microscopic RBC (0-5) /HPF Urine Microscopic WBC (0-5) /HPF Ur Epithelial Cells (None Seen) /HPF Urine Bacteria (None Seen) /HPF Urine Culture Reflexed (NO) Influenza Type A Ag NEGATIVE (NEGATIVE) Influenza Type B Ag NEGATIVE (NEGATIVE) RSV (PCR) NEGATIVE (Negative) SARS-CoV-2 (PCR) NEGATIVE (NEGATIVE) 07/15/22 Range/Units 04:45 WBC (4.0-10.5) x10^3/uL RBC (4.1-5.4) x10^6/uL Hgb (12.0-16.0) g/dL Hct (35-47) % MCV (78-100) fL MCH (26-32) pg MCHC (32-36) g/dL RDW (11.5-14.0) % Plt Count (150-450) x10^3/uL MPV (7.5-11.0) fL Gran % (36.0-66.0) % Immature Gran % (Auto) (0.00-0.4) % Nucleat RBC Rel Count (0.00-0.1) % Eos # (Auto) (0-0.5) x10^3/uL Immature Gran # (Auto) (0.00-0.03) x10^3u/L Absolute Lymphs (auto) (1.0-4.6) x10^3/uL Absolute Monos (auto) (0.0-1.3) x10^3/uL Absolute Nucleated RBC (0.00-0.01) x10^3u/L Lymphocytes % (24.0-44.0) % Monocytes % (0.0-12.0) % Eosinophils % (0.00-5.0) % Basophils % (0.0-0.4) % Absolute Granulocytes (1.4-6.9) x10^3/uL Basophils # (0-0.4) x10^3/uL Sodium 138 (137-145) mmol/L Potassium 3.8 (3.5-5.1) mmol/L Chloride 104 (98-107) mmol/L Carbon Dioxide 27 (22-30) mmol/L Anion Gap 10.4 (5-15) MEQ/L BUN 8 (7-17) mg/dL Creatinine 0.60 (0.52-1.04) mg/dL Estimated GFR > 60.0 ML/MIN Glucose 90 (74-106) mg/dL Calcium 8.5 (8.4-10.2) mg/dL Total Bilirubin 1.00 (0.2-1.3) mg/dL AST 635 H (14-36) U/L ALT 323 H (0-35) U/L Alkaline Phosphatase 209 H (38-126) U/L Troponin I (0.000-0.034) ng/mL Serum Total Protein 7.0 (6.3-8.2) g/dL Albumin 3.7 (3.5-5.0) g/dL Amylase (30-110) U/L Lipase (23-300) U/L Urine Color (Yellow) Urine Appearance (Clear) Urine pH (4.6-8.0) Ur Specific [place] (1.005-1.030) Urine Protein (Negative) Urine Glucose (UA) (Negative) mg/dL Urine Ketones (Negative) Urine Blood (Negative) Urine Nitrite (Negative) Urine Bilirubin (Negative) Urine Urobilinogen (0.2) mg/dL Ur Leukocyte Esterase (Negative) U Hyaline Cast (Auto) (0-2) /LPF Urine Microscopic RBC (0-5) /HPF Urine Microscopic WBC (0-5) /HPF Ur Epithelial Cells (None Seen) /HPF Urine Bacteria (None Seen) /HPF Urine Culture Reflexed (NO) Influenza Type A Ag (NEGATIVE) Influenza Type B Ag (NEGATIVE) RSV (PCR) (Negative) SARS-CoV-2 (PCR) (NEGATIVE) - Radiology Impressions Radiology Exams & Impressions: Radiology Procedures Category Date Time Status ABDOMEN AND PELVIS W CONTRAST [CT] Stat Exams 07/14/22 17:34 Completed - Other Procedures and Tests Respiratory Therapy 07/15/22 07:31 Oxygen NASAL CANNULA 2 lpm Assessment/Plan (1) Pancreatitis Current Visit: Yes Status: Acute Qualifiers: Chronicity: acute Pancreatitis type: idiopathic Acute pancreatitis complication: no infection or necrosis Qualified Code(s): K85.00 - Idiopathic acute pancreatitis without necrosis or infection Assessment & Plan: Sounds like acute on chronic. I advised no amount of alcohol is safe for her to drink. Concern with elevated LFTs this morning - rechecking them. Fluid bolus. Code(s): K85.90 - ACUTE PANCREATITIS WITHOUT NECROSIS OR INFECTION, UNSP (2) Elevated liver enzymes Current Visit: Yes Status: Acute Code(s): R74.8 - ABNORMAL LEVELS OF OTHER SERUM ENZYMES (3) Chest pain Current Visit: No Status: Resolved Qualifiers: Chest pain type: other chest pain Qualified Code(s): R07.89 - Other chest pain; R07.8 - Other chest pain Assessment & Plan: NE ruled out with 3 neg trop Code(s): R07.9 - CHEST PAIN, UNSPECIFIED (4) Hypertension Current Visit: Yes Status: Chronic Qualifiers: Hypertension type: primary hypertension Qualified Code(s): I10 - Essential (primary) hypertension Code(s): I10 - ESSENTIAL (PRIMARY) HYPERTENSION (5) GERD (gastroesophageal reflux disease) Current Visit: Yes Status: Chronic Qualifiers: Esophagitis presence: without esophagitis Qualified Code(s): K21.9 - Gastro-esophageal reflux disease without esophagitis Code(s): K21.9 - GASTRO-ESOPHAGEAL REFLUX DISEASE WITHOUT ESOPHAGITIS (6) Fibromyalgia Current Visit: Yes Status: Chronic (7) Diarrhea Current Visit: Yes Status: Acute Qualifiers: Diarrhea type: unspecified type Qualified Code(s): R19.7 - Diarrhea, unspecified Assessment & Plan: check c. diff if has again. Code(s): R19.7 - DIARRHEA, UNSPECIFIED (8) Alcohol use Current Visit: Yes Status: Acute Assessment & Plan: Pt says hasn't drunk any EtOH for 2 weeks, then admits to the [facility] 2d ago. Her and daughter told staff pt is inebriated 4-5 nights /week. Start CIWA protocol. Code(s): Z78.9 - OTHER SPECIFIED HEALTH STATUS
[2022-07-15] MEDS ORDERED: Sodium Chloride 0.9% 1000 ML 1,000 ML IV STA (18:10)
[2022-07-15] MEDS ORDERED: Ativan 2 MG/1 ML VIAL IV PRN ×2 (18:45→20:00)
[2022-07-15 18:49] LABS: ALBUMIN 3.9 g/dL (3.5-5.0); ALKALINE PHOSPHATASE 279 U/L (38-126); ANION GAP 13.4 MEQ/L (5-15); BLOOD UREA NITROGEN 7 mg/dL (7-17); CHLORIDE 103 mmol/L (98-107); Calcium 8.8 mg/dL (8.4-10.2); Carbon Dioxide 23 mmol/L (22-30); Creatinine 1 0.56 mg/dL (0.52-1.04); EST GLOMERULAR FILTRATION RATE > 60.0 ML/MIN; Glucose 52 mg/dL (74-106); Potassium 3.5 mmol/L (3.5-5.1); SGOT/AST 388 U/L (14-36); SGPT/ALT 271 U/L (0-35); SODIUM 137 mmol/L (137-145); Total Protein 7.3 g/dL (6.3-8.2)
[2022-07-15 18:56] LABS: LIPASE 3692 U/L (23-300)
[2022-07-15] MEDS ORDERED: Ativan 2 MG/1 ML VIAL ONE (19:17)
[2022-07-15] MEDS ORDERED: Ativan 2 MG/1 ML VIAL IV ONE (19:59)
[2022-07-15] MEDS ORDERED: NON-FORMULARY ITEM (Rosuvastatin Calcium [Crestor] 20 MG Tablet) PO SCH (22:00)
[2022-07-16] MEDS: Lopressor 25MG Tab PO SCH ×3 (02:00→22:49)
[2022-07-16] MEDS: ZOCOR 20MG PO SCH ×2 (02:01→22:49)
[2022-07-16] MEDS: Wellbutrin XL 150 MG PO SCH ×2 (02:01→22:50)
[2022-07-16] MEDS: NEURONTIN PO SCH ×4 (02:01→22:49)
[2022-07-16 04:56] LABS: Absolute Neutrophil Ct (ANC) 2.78 x10^3/uL (1.4-6.9); BASOPHIL % 0.9 % (0.0-0.4); Basophil (Absolute #) 0.04 x10^3/uL (0-0.4); Eosinophil % 3.3 % (0.00-5.0); Eosinophil (Absolute #) 0.15 x10^3/uL (0-0.5); Hematocrit 37.1 % (35-47); Hemoglobin 12.3 g/dL (12.0-16.0); IMMATURE GRAN # 0.01 x10^3u/L (0.00-0.03); IMMATURE GRAN % 0.2 % (0.00-0.4); Lymphocyte (Absolute #) 1.14 x10^3/uL (1.0-4.6); Lymphocytes % 25.2 % (24.0-44.0); Mean Cell Volume 86.7 fL (78-100); Mean Corpuscular Hemoglobin 28.7 pg (26-32); Mean Corpuscular Hgb Concent. 33.2 g/dL (32-36); Mean Platelet Volume 9.9 fL (7.5-11.0); Monocytes % 8.8 % (0.0-12.0); Neutrophil % 61.6 % (36.0-66.0); Platelet Count 243 x10^3/uL (150-450); Red Blood Count 4.28 x10^6/uL (4.1-5.4); Red Cell Distribution Width 14.7 % (11.5-14.0); White Blood Count 4.5 x10^3/uL (4.0-10.5)
[2022-07-16 05:15] LABS: ALBUMIN 3.8 g/dL (3.5-5.0); ALKALINE PHOSPHATASE 241 U/L (38-126); AMYLASE 269 U/L (30-110); ANION GAP 8.9 MEQ/L (5-15); BLOOD UREA NITROGEN 3 mg/dL (7-17); CHLORIDE 101 mmol/L (98-107); Calcium 8.5 mg/dL (8.4-10.2); Carbon Dioxide 28 mmol/L (22-30); Creatinine 1 0.52 mg/dL (0.52-1.04); EST GLOMERULAR FILTRATION RATE > 60.0 ML/MIN; Glucose 98 mg/dL (74-106); LIPASE 794 U/L (23-300); Potassium 3.3 mmol/L (3.5-5.1); SGOT/AST 232 U/L (14-36); SGPT/ALT 222 U/L (0-35); SODIUM 134 mmol/L (137-145)
[2022-07-16] MEDS: Sodium Chloride 0.9% 1000 ML 1,000 ML IV SCH ×2 (05:26→15:17)
[2022-07-16] MEDS: PLAVIX Tablet PO SCH (08:56)
[2022-07-16] MEDS: NORVASC 5 MG PO SCH (08:56)
--- NOTE | 2022-07-16 08:56 | PCM.NOTE ---
Date and Time: 07/16/22 0851 Subjective Assessment: Pt is feeling better, says she is just "sore," will not give me # from 0-10/10. I woke her and she is somewhat somnolent; oriented to place, thinks date is "probably July,." Sagar CLD. - Review of Systems Constitutional: No Fever Respiratory: No Cough Abdominal/Gastrointestinal: Abdominal Pain Objective Exam General Appearance: no apparent distress, other (somnolent, but wakes to repeated questions) Neurologic Exam: cooperative Skin Exam: normal color, warm, dry, No rash Eye Exam: eyes nml inspection Ears, Nose, Throat Exam: moist mucous membranes Respiratory Exam: normal breath sounds, lungs clear, No crackles/rales, No rhonchi, No wheezing Cardiovascular Exam: regular rate/rhythm, normal heart sounds, No murmur Gastrointestinal/Abdomen Exam: soft, normal bowel sounds, tenderness (epig astrum; very mildly ttp generalized), No distention, No mass, No guarding, No rebound Extremity Exam: normal inspection, No pedal edema, No swelling Back Exam: normal inspection, No rash OBJECTIVE DATA Vital Signs: Vital Signs - 24 hr Temp Pulse Resp BP Pulse Ox 07/16/22 08:00 16 07/16/22 07:17 97.7 F 81 16 138/80 96 07/16/22 07:03 91 L 07/16/22 04:00 98.0 F 84 16 156/82 94 L 07/15/22 23:37 97.0 F 92 H 16 129/81 95 07/15/22 21:17 91 H 20 07/15/22 20:43 93 H 97 07/15/22 20:00 16 07/15/22 19:35 96.9 F 84 16 138/71 99 07/15/22 18:41 91 L 07/15/22 16:52 93 L 07/15/22 16:00 98.1 F 67 18 139/67 92 L 07/15/22 12:00 17 07/15/22 11:19 98.0 F 67 16 104/55 93 L Pain Assessment - Last Documented Pain Intensity 0 Pain Scale Used 0-10 Pain Scale Intake and Output: Intake & Output 07/13/22 07/14/22 07/15/22 07/16/22 11:59 11:59 11:59 11:59 Intake Total 4500 2192 Output Total 600 5500 Balance 804 -9913 Weight 77.5 kg Lab Results: Lab Results-Last 24 Hours 07/14/22 07/15/22 07/16/22 Range/Units 09:30 18:30 01:51 WBC (4.0-10.5) x10^3/uL RBC (4.1-5.4) x10^6/uL Hgb (12.0-16.0) g/dL Hct (35-47) % MCV (78-100) fL MCH (26-32) pg MCHC (32-36) g/dL RDW (11.5-14.0) % Plt Count (150-450) x10^3/uL MPV (7.5-11.0) fL Gran % (36.0-66.0) % Immature Gran % (Auto) (0.00-0.4) % Nucleat RBC Rel Count (0.00-0.1) % Eos # (Auto) (0-0.5) x10^3/uL Immature Gran # (Auto) (0.00-0.03) x10^3u/L Absolute Lymphs (auto) (1.0-4.6) x10^3/uL Absolute Monos (auto) (0.0-1.3) x10^3/uL Absolute Nucleated RBC (0.00-0.01) x10^3u/L Lymphocytes % (24.0-44.0) % Monocytes % (0.0-12.0) % Eosinophils % (0.00-5.0) % Basophils % (0.0-0.4) % Absolute Granulocytes (1.4-6.9) x10^3/uL Basophils # (0-0.4) x10^3/uL Sodium 137 (137-145) mmol/L Potassium 3.5 (3.5-5.1) mmol/L Chloride 103 (98-107) mmol/L Carbon Dioxide 23 (22-30) mmol/L Anion Gap 13.4 (5-15) MEQ/L BUN 7 (7-17) mg/dL Creatinine 0.56 (0.52-1.04) mg/dL Estimated GFR > 60.0 ML/MIN Glucose 52 L (74-106) mg/dL POC Glucometer 94 (74 to 106) mg/dL Calcium 8.8 (8.4-10.2) mg/dL Total Bilirubin 0.80 (0.2-1.3) mg/dL AST 388 H (14-36) U/L ALT 271 H (0-35) U/L Alkaline Phosphatase 279 H (38-126) U/L Serum Total Protein 7.3 (6.3-8.2) g/dL Albumin 3.9 (3.5-5.0) g/dL Amylase (30-110) U/L Lipase 3692 H (23-300) U/L Urine Color Dark Yellow A (Yellow) Urine Appearance Clear (Clear) Urine pH 6.0 (4.6-8.0) Ur Specific [place] 1.025 (1.005-1.030) Urine Protein Negative (Negative) Urine Glucose (UA) Negative (Negative) mg/dL Urine Ketones Negative (Negative) Urine Blood Negative (Negative) Urine Nitrite Negative (Negative) Urine Bilirubin Negative (Negative) Urine Urobilinogen 2.0 A (0.2) mg/dL Ur Leukocyte Esterase Negative (Negative) U Hyaline Cast (Auto) NONE SEEN (0-2) /LPF Urine Microscopic RBC 0-2 (0-5) /HPF Urine Microscopic WBC 0-2 (0-5) /HPF Ur Epithelial Cells None Seen (None Seen) /HPF Urine Bacteria None Seen (None Seen) /HPF Urine Culture Reflexed NO (NO) 07/16/22 07/16/22 Range/Units 04:39 04:39 WBC 4.5 (4.0-10.5) x10^3/uL RBC 4.28 (4.1-5.4) x10^6/uL Hgb 12.3 (12.0-16.0) g/dL Hct 37.1 (35-47) % MCV 86.7 (78-100) fL MCH 28.7 (26-32) pg MCHC 33.2 (32-36) g/dL RDW 14.7 H (11.5-14.0) % Plt Count 243 (150-450) x10^3/uL MPV 9.9 (7.5-11.0) fL Gran % 61.6 (36.0-66.0) % Immature Gran % (Auto) 0.2 (0.00-0.4) % Nucleat RBC Rel Count 0.0 (0.00-0.1) % Eos # (Auto) 0.15 (0-0.5) x10^3/uL Immature Gran # (Auto) 0.01 (0.00-0.03) x10^3u/L Absolute Lymphs (auto) 1.14 (1.0-4.6) x10^3/uL Absolute Monos (auto) 0.40 (0.0-1.3) x10^3/uL Absolute Nucleated RBC 0.00 (0.00-0.01) x10^3u/L Lymphocytes % 25.2 (24.0-44.0) % Monocytes % 8.8 (0.0-12.0) % Eosinophils % 3.3 (0.00-5.0) % Basophils % 0.9 (0.0-0.4) % Absolute Granulocytes 2.78 (1.4-6.9) x10^3/uL Basophils # 0.04 (0-0.4) x10^3/uL Sodium 134 L (137-145) mmol/L Potassium 3.3 L (3.5-5.1) mmol/L Chloride 101 (98-107) mmol/L Carbon Dioxide 28 (22-30) mmol/L Anion Gap 8.9 (5-15) MEQ/L BUN 3 L (7-17) mg/dL Creatinine 0.52 (0.52-1.04) mg/dL Estimated GFR > 60.0 ML/MIN Glucose 98 (74-106) mg/dL POC Glucometer (74 to 106) mg/dL Calcium 8.5 (8.4-10.2) mg/dL Total Bilirubin 0.40 (0.2-1.3) mg/dL AST 232 H (14-36) U/L ALT 222 H (0-35) U/L Alkaline Phosphatase 241 H (38-126) U/L Serum Total Protein 7.0 (6.3-8.2) g/dL Albumin 3.8 (3.5-5.0) g/dL Amylase 269 H (30-110) U/L Lipase 794 H (23-300) U/L Urine Color (Yellow) Urine Appearance (Clear) Urine pH (4.6-8.0) Ur Specific [place] (1.005-1.030) Urine Protein (Negative) Urine Glucose (UA) (Negative) mg/dL Urine Ketones (Negative) Urine Blood (Negative) Urine Nitrite (Negative) Urine Bilirubin (Negative) Urine Urobilinogen (0.2) mg/dL Ur Leukocyte Esterase (Negative) U Hyaline Cast (Auto) (0-2) /LPF Urine Microscopic RBC (0-5) /HPF Urine Microscopic WBC (0-5) /HPF Ur Epithelial Cells (None Seen) /HPF Urine Bacteria (None Seen) /HPF Urine Culture Reflexed (NO) Radiology Exams: Radiology Procedures Category Date Time Status ABDOMEN AND PELVIS W CONTRAST [CT] Stat Exams 07/14/22 17:34 Completed LIVER OR SPLEEN [US] Routine Exams 07/16/22 08:50 Ordered Assessment/Plan (1) Pancreatitis Current Visit: Yes Status: Acute Qualifiers: Chronicity: acute Pancreatitis type: idiopathic Acute pancreatitis complication: no infection or necrosis Qualified Code(s): K85.00 - Idiopathic acute pancreatitis without necrosis or infection Assessment & Plan: Improved, with lipase 794 this morning (>4000 on admission). Continue IVF and advance diet slowly (likely to bland tomorrow). Code(s): K85.90 - ACUTE PANCREATITIS WITHOUT NECROSIS OR INFECTION, UNSP (2) Elevated liver enzymes Current Visit: Yes Status: Acute Assessment & Plan: Enzymes were normal just prior to admission. Will check liver u/s. Was worried for obstruction yesterday with acute increase in LFTs from 200s to 600 (ALT), but have decreased this morning. Still elevated. Check hepatitis panel, PT/PTT as well. May be due to acute illness. Plt are nl. Code(s): R74.8 - ABNORMAL LEVELS OF OTHER SERUM ENZYMES (3) Chest pain Current Visit: No Status: Resolved Qualifiers: Chest pain type: other chest pain Qualified Code(s): R07.89 - Other chest pain; R07.8 - Other chest pain Code(s): R07.9 - CHEST PAIN, UNSPECIFIED (4) Hypertension Current Visit: Yes Status: Chronic Qualifiers: Hypertension type: primary hypertension Qualified Code(s): I10 - Essential (primary) hypertension Code(s): I10 - ESSENTIAL (PRIMARY) HYPERTENSION (5) GERD (gastroesophageal reflux disease) Current Visit: Yes Status: Chronic Qualifiers: Esophagitis presence: without esophagitis Qualified Code(s): K21.9 - Gastro-esophageal reflux disease without esophagitis Code(s): K21.9 - GASTRO-ESOPHAGEAL REFLUX DISEASE WITHOUT ESOPHAGITIS (6) Fibromyalgia Current Visit: Yes Status: Chronic (7) Diarrhea Current Visit: Yes Status: Resolved Qualifiers: Diarrhea type: unspecified type Qualified Code(s): R19.7 - Diarrhea, unspecified Code(s): R19.7 - DIARRHEA, UNSPECIFIED (8) Alcohol use Current Visit: Yes Status: Acute Code(s): Z78.9 - OTHER SPECIFIED HEALTH STATUS
[2022-07-16] MEDS: Effexor XR 75 MG PO SCH (08:57)
[2022-07-16] MEDS: Protonix 40MG Tablet PO SCH (08:57)
[2022-07-16 09:37] LABS: INR 1.02 (0.8-3.0); PROTIME 11.1 SECONDS (9.4-12.5); PTT 27.9 SECONDS (25.1-36.5)
[2022-07-16] MEDS ORDERED: NON-FORMULARY ITEM (Venlafaxine Hcl [Effexor Xr] 150 MG Cap.Er.24h) PO SCH (10:00)
--- NOTE | 2022-07-16 10:35 | XRAY ---
Indication: Elevated liver function test. Cholecystectomy. Two-dimensional right upper quadrant abdominal sonogram performed. Comparison: None Visualized liver appears homogeneous in echogenicity without hepatomegaly or ascites. Gallbladder surgically absent. Common bile duct measures 10.2 mm. No intrahepatic biliary distention. Remaining visualized pancreas and right kidney are sonographically unremarkable. Right kidney measures 9.4 cm in length. Impression: Cholecystectomy in a otherwise negative right upper quadrant sonogram.
[2022-07-16] MEDS: Hydromorphone 1 mg/ml Injection IV PRN ×2 (13:14→17:45)
[2022-07-16] MEDS: Klor Con PO SCH ×4 (13:17→23:00)
[2022-07-16] MEDS ORDERED: Klor Con PO ONE (18:42)
[2022-07-17] MEDS: Sodium Chloride 0.9% 1000 ML 1,000 ML IV SCH ×3 (00:18→20:01)
[2022-07-17] MEDS: Hydromorphone 1 mg/ml Injection IV PRN ×4 (02:28→20:00)
[2022-07-17 04:58] LABS: Absolute Neutrophil Ct (ANC) 2.53 x10^3/uL (1.4-6.9); BASOPHIL % 0.9 % (0.0-0.4); Basophil (Absolute #) 0.04 x10^3/uL (0-0.4); Eosinophil % 4.3 % (0.00-5.0); Hematocrit 39.2 % (35-47); Hemoglobin 12.7 g/dL (12.0-16.0); IMMATURE GRAN # 0.01 x10^3u/L (0.00-0.03); IMMATURE GRAN % 0.2 % (0.00-0.4); Lymphocyte (Absolute #) 1.35 x10^3/uL (1.0-4.6); Lymphocytes % 29.1 % (24.0-44.0); Mean Cell Volume 87.5 fL (78-100); Mean Corpuscular Hemoglobin 28.3 pg (26-32); Mean Corpuscular Hgb Concent. 32.4 g/dL (32-36); Mean Platelet Volume 9.8 fL (7.5-11.0); Monocyte (Absolute #) 0.51 x10^3/uL (0.0-1.3); Neutrophil % 54.5 % (36.0-66.0); Platelet Count 245 x10^3/uL (150-450); Red Blood Count 4.48 x10^6/uL (4.1-5.4); Red Cell Distribution Width 14.6 % (11.5-14.0); White Blood Count 4.6 x10^3/uL (4.0-10.5)
[2022-07-17 05:29] LABS: ALBUMIN 3.8 g/dL (3.5-5.0); ALKALINE PHOSPHATASE 282 U/L (38-126); ANION GAP 9.4 MEQ/L (5-15); BLOOD UREA NITROGEN 3 mg/dL (7-17); CHLORIDE 103 mmol/L (98-107); Calcium 8.9 mg/dL (8.4-10.2); Carbon Dioxide 28 mmol/L (22-30); Creatinine 1 0.56 mg/dL (0.52-1.04); EST GLOMERULAR FILTRATION RATE > 60.0 ML/MIN; Glucose 95 mg/dL (74-106); Potassium 4.1 mmol/L (3.5-5.1); SGOT/AST 206 U/L (14-36); SGPT/ALT 203 U/L (0-35); SODIUM 137 mmol/L (137-145); Total Protein 7.2 g/dL (6.3-8.2)
--- NOTE | 2022-07-17 09:04 | PCM.NOTE ---
Date and Time: 07/17/22901 Subjective Assessment: patient reports pain is improving. has had some withdrawal symptoms related to ETOH, she is tolerating liquids and overall improving. Objective Exam General Appearance: no apparent distress Neurologic Exam: alert, oriented x 3 Skin Exam: normal color, warm, dry Respiratory Exam: normal breath sounds, lungs clear, No respiratory distress Cardiovascular Exam: regular rate/rhythm, normal heart sounds Gastrointestinal/Abdomen Exam: soft, tenderness (minimal epigastrium), No guarding, No rebound Extremity Exam: normal inspection, normal range of motion OBJECTIVE DATA Vital Signs: Vital Signs - 24 hr Temp Pulse Resp BP Pulse Ox 07/17/22 07:09 97.6 F 61 16 129/78 96 07/17/22 06:55 96 07/17/22 04:00 97.8 F 66 16 121/75 92 L 07/16/22 23:56 98.4 F 70 16 139/75 95 07/16/22 20:00 98.4 F 70 18 138/80 95 07/16/22 18:55 94 L 07/16/22 16:00 97.6 F 70 16 128/80 97 07/16/22 12:00 16 07/16/22 11:20 97.8 F 70 16 131/65 96 Pain Assessment - Last Documented Pain Intensity 3 Pain Scale [facility] Intake and Output: Intake & Output 07/14/22 07/15/22 07/16/22 07/17/22 11:59 11:59 11:59 11:59 Intake Total 1404 3462 4341 Output Total 600 6200 3951 Balance 804 -8 390 Weight 77.5 kg Lab Results: Lab Results-Last 24 Hours 07/16/22 07/16/22 07/16/22 Range/Units 09:32 15:57 18:11 WBC (4.0-10.5) x10^3/uL RBC (4.1-5.4) x10^6/uL Hgb (12.0-16.0) g/dL Hct (35-47) % MCV (78-100) fL MCH (26-32) pg MCHC (32-36) g/dL RDW (11.5-14.0) % Plt Count (150-450) x10^3/uL MPV (7.5-11.0) fL Gran % (36.0-66.0) % Immature Gran % (Auto) (0.00-0.4) % Nucleat RBC Rel Count (0.00-0.1) % Eos # (Auto) (0-0.5) x10^3/uL Immature Gran # (Auto) (0.00-0.03) x10^3u/L Absolute Lymphs (auto) (1.0-4.6) x10^3/uL Absolute Monos (auto) (0.0-1.3) x10^3/uL Absolute Nucleated RBC (0.00-0.01) x10^3u/L Lymphocytes % (24.0-44.0) % Monocytes % (0.0-12.0) % Eosinophils % (0.00-5.0) % Basophils % (0.0-0.4) % Absolute Granulocytes (1.4-6.9) x10^3/uL Basophils # (0-0.4) x10^3/uL PT 11.1 (9.4-12.5) SECONDS INR 1.02 (0.8-3.0) APTT 27.9 (25.1-36.5) SECONDS Sodium (137-145) mmol/L Potassium 3.7 3.9 (3.5-5.1) mmol/L Chloride (98-107) mmol/L Carbon Dioxide (22-30) mmol/L Anion Gap (5-15) MEQ/L BUN (7-17) mg/dL Creatinine (0.52-1.04) mg/dL Estimated GFR ML/MIN Glucose (74-106) mg/dL Calcium (8.4-10.2) mg/dL Total Bilirubin (0.2-1.3) mg/dL AST (14-36) U/L ALT (0-35) U/L Alkaline Phosphatase (38-126) U/L Serum Total Protein (6.3-8.2) g/dL Albumin (3.5-5.0) g/dL 07/16/22 07/17/22 07/17/22 Range/Units 22:05 04:50 04:50 WBC 4.6 (4.0-10.5) x10^3/uL RBC 4.48 (4.1-5.4) x10^6/uL Hgb 12.7 (12.0-16.0) g/dL Hct 39.2 (35-47) % MCV 87.5 (78-100) fL MCH 28.3 (26-32) pg MCHC 32.4 (32-36) g/dL RDW 14.6 H (11.5-14.0) % Plt Count 245 (150-450) x10^3/uL MPV 9.8 (7.5-11.0) fL Gran % 54.5 (36.0-66.0) % Immature Gran % (Auto) 0.2 (0.00-0.4) % Nucleat RBC Rel Count 0.0 (0.00-0.1) % Eos # (Auto) 0.20 (0-0.5) x10^3/uL Immature Gran # (Auto) 0.01 (0.00-0.03) x10^3u/L Absolute Lymphs (auto) 1.35 (1.0-4.6) x10^3/uL Absolute Monos (auto) 0.51 (0.0-1.3) x10^3/uL Absolute Nucleated RBC 0.00 (0.00-0.01) x10^3u/L Lymphocytes % 29.1 (24.0-44.0) % Monocytes % 11.0 (0.0-12.0) % Eosinophils % 4.3 (0.00-5.0) % Basophils % 0.9 (0.0-0.4) % Absolute Granulocytes 2.53 (1.4-6.9) x10^3/uL Basophils # 0.04 (0-0.4) x10^3/uL PT (9.4-12.5) SECONDS INR (0.8-3.0) APTT (25.1-36.5) SECONDS Sodium 137 (137-145) mmol/L Potassium 3.9 4.1 (3.5-5.1) mmol/L Chloride 103 (98-107) mmol/L Carbon Dioxide 28 (22-30) mmol/L Anion Gap 9.4 (5-15) MEQ/L BUN 3 L (7-17) mg/dL Creatinine 0.56 (0.52-1.04) mg/dL Estimated GFR > 60.0 ML/MIN Glucose 95 (74-106) mg/dL Calcium 8.9 (8.4-10.2) mg/dL Total Bilirubin 0.50 (0.2-1.3) mg/dL AST 206 H (14-36) U/L ALT 203 H (0-35) U/L Alkaline Phosphatase 282 H (38-126) U/L Serum Total Protein 7.2 (6.3-8.2) g/dL Albumin 3.8 (3.5-5.0) g/dL Radiology Exams: Radiology Procedures Category Date Time Status LIVER OR SPLEEN [US] Routine Exams 07/16/22 08:50 Completed Multi-Disciplinary Progress Notes: Multi-Disciplinary Progress Notes 07/16/22 10:43 Case Management Note by Lissette Ji Spoke with patient and she states still plans to return home with spouse. States has no new needs Initialized on 07/16/22 10:43 - END OF NOTE Assessment/Plan (1) Acute alcoholic pancreatitis Current Visit: Yes Status: Acute Assessment & Plan: check pancreas enzymes, LFTs are slowly improving. will continue current diet and monitor but clinically improving. will cover CIWA protocol with po ativan PRN Code(s): K85.20 - ALCOHOL INDUCED ACUTE PANCREATITIS WITHOUT NECROSIS OR INFCT
[2022-07-17 09:26] LABS: AMYLASE 215 U/L (30-110); LIPASE 1998 U/L (23-300)
[2022-07-17] MEDS: Protonix 40MG Tablet PO SCH (10:04)
[2022-07-17] MEDS: Lopressor 25MG Tab PO SCH (10:05)
[2022-07-17] MEDS: NEURONTIN PO SCH ×2 (10:06→14:07)
[2022-07-17] MEDS: PLAVIX Tablet PO SCH (10:06)
[2022-07-17] MEDS: NORVASC 5 MG PO SCH (10:06)
[2022-07-17] MEDS: Effexor XR 75 MG PO SCH (10:07)
[2022-07-17] MEDS: Ativan 1 MG PO PRN (18:14)
[2022-07-18] MEDS: Lopressor 25MG Tab PO SCH ×3 (01:57→22:22)
[2022-07-18] MEDS: NEURONTIN PO SCH ×4 (01:57→21:43)
[2022-07-18] MEDS: Wellbutrin XL 150 MG PO SCH ×2 (01:57→21:43)
[2022-07-18] MEDS: ZOCOR 20MG PO SCH ×2 (01:58→21:43)
[2022-07-18 05:11] LABS: Absolute Neutrophil Ct (ANC) 2.41 x10^3/uL (1.4-6.9); BASOPHIL % 0.9 % (0.0-0.4); Basophil (Absolute #) 0.04 x10^3/uL (0-0.4); Eosinophil % 4.6 % (0.00-5.0); Eosinophil (Absolute #) 0.21 x10^3/uL (0-0.5); Hemoglobin 12.9 g/dL (12.0-16.0); IMMATURE GRAN # 0.01 x10^3u/L (0.00-0.03); IMMATURE GRAN % 0.2 % (0.00-0.4); Lymphocyte (Absolute #) 1.42 x10^3/uL (1.0-4.6); Lymphocytes % 31.1 % (24.0-44.0); Mean Cell Volume 87.3 fL (78-100); Mean Corpuscular Hemoglobin 28.2 pg (26-32); Mean Corpuscular Hgb Concent. 32.3 g/dL (32-36); Mean Platelet Volume 10.1 fL (7.5-11.0); Monocyte (Absolute #) 0.47 x10^3/uL (0.0-1.3); Monocytes % 10.3 % (0.0-12.0); Neutrophil % 52.9 % (36.0-66.0); Platelet Count 247 x10^3/uL (150-450); Red Blood Count 4.58 x10^6/uL (4.1-5.4); Red Cell Distribution Width 14.5 % (11.5-14.0); White Blood Count 4.6 x10^3/uL (4.0-10.5)
[2022-07-18 05:43] LABS: ALBUMIN 3.7 g/dL (3.5-5.0); ALKALINE PHOSPHATASE 330 U/L (38-126); AMYLASE 141 U/L (30-110); ANION GAP 13.1 MEQ/L (5-15); BLOOD UREA NITROGEN 3 mg/dL (7-17); CHLORIDE 102 mmol/L (98-107); Carbon Dioxide 26 mmol/L (22-30); Creatinine 1 0.58 mg/dL (0.52-1.04); EST GLOMERULAR FILTRATION RATE > 60.0 ML/MIN; Glucose 81 mg/dL (74-106); LIPASE 466 U/L (23-300); Potassium 3.4 mmol/L (3.5-5.1); SGOT/AST 176 U/L (14-36); SGPT/ALT 192 U/L (0-35); SODIUM 137 mmol/L (137-145); Total Protein 7.2 g/dL (6.3-8.2)
[2022-07-18] MEDS: Sodium Chloride 0.9% 1000 ML 1,000 ML IV SCH ×2 (05:52→15:23)
[2022-07-18] MEDS ORDERED: DULCOLAX 5 MG PO PRN (08:25)
--- NOTE | 2022-07-18 08:27 | PCM.NOTE ---
Date and Time: 07/18/22825 Subjective Assessment: patient reports she is feeling better today. pain has resolved at this time, no nausea or vomiting. Objective Exam General Appearance: no apparent distress Neurologic Exam: alert, oriented x 3 Respiratory Exam: normal breath sounds, lungs clear, No respiratory distress Cardiovascular Exam: regular rate/rhythm, normal heart sounds Gastrointestinal/Abdomen Exam: soft, No tenderness, No mass OBJECTIVE DATA Vital Signs: Vital Signs - 24 hr Temp Pulse Resp BP Pulse Ox 07/18/22 07:22 98.0 F 68 15 127/80 95 07/18/22 07:13 95 07/18/22 04:00 97.1 F 67 18 118/73 94 L 07/18/22 02:00 16 07/17/22 23:51 97.5 F 67 16 134/86 94 L 07/17/22 20:21 93 L 07/17/22 19:48 98.0 F 62 16 140/88 93 L 07/17/22 16:00 97.6 F 63 16 132/79 94 L 07/17/22 11:36 97.6 F 73 16 158/80 96 Pain Assessment - Last Documented Pain Intensity 0 Pain Scale Used 0-10 Pain Scale Intake and Output: Intake & Output 07/15/22 07/16/22 07/17/22 07/18/22 11:59 11:59 11:59 11:59 Intake Total 1404 3462 4921 2381 Output Total 600 6200 6351 2800 Balance 804 -2738 -1430 -419 Weight 77.5 kg Lab Results: Lab Results-Last 24 Hours 07/17/22 07/18/22 07/18/22 Range/Units 05:00 05:13 05:13 WBC 4.6 (4.0-10.5) x10^3/uL RBC 4.58 (4.1-5.4) x10^6/uL Hgb 12.9 (12.0-16.0) g/dL Hct 40.0 (35-47) % MCV 87.3 (78-100) fL MCH 28.2 (26-32) pg MCHC 32.3 (32-36) g/dL RDW 14.5 H (11.5-14.0) % Plt Count 247 (150-450) x10^3/uL MPV 10.1 (7.5-11.0) fL Gran % 52.9 (36.0-66.0) % Immature Gran % (Auto) 0.2 (0.00-0.4) % Nucleat RBC Rel Count 0.0 (0.00-0.1) % Eos # (Auto) 0.21 (0-0.5) x10^3/uL Immature Gran # (Auto) 0.01 (0.00-0.03) x10^3u/L Absolute Lymphs (auto) 1.42 (1.0-4.6) x10^3/uL Absolute Monos (auto) 0.47 (0.0-1.3) x10^3/uL Absolute Nucleated RBC 0.00 (0.00-0.01) x10^3u/L Lymphocytes % 31.1 (24.0-44.0) % Monocytes % 10.3 (0.0-12.0) % Eosinophils % 4.6 (0.00-5.0) % Basophils % 0.9 (0.0-0.4) % Absolute Granulocytes 2.41 (1.4-6.9) x10^3/uL Basophils # 0.04 (0-0.4) x10^3/uL Sodium 137 (137-145) mmol/L Potassium 3.4 L (3.5-5.1) mmol/L Chloride 102 (98-107) mmol/L Carbon Dioxide 26 (22-30) mmol/L Anion Gap 13.1 (5-15) MEQ/L BUN 3 L (7-17) mg/dL Creatinine 0.58 (0.52-1.04) mg/dL Estimated GFR > 60.0 ML/MIN Glucose 81 (74-106) mg/dL Calcium 9.0 (8.4-10.2) mg/dL Total Bilirubin 0.40 (0.2-1.3) mg/dL AST 176 H (14-36) U/L ALT 192 H (0-35) U/L Alkaline Phosphatase 330 H (38-126) U/L Serum Total Protein 7.2 (6.3-8.2) g/dL Albumin 3.7 (3.5-5.0) g/dL Amylase 215 H 141 H (30-110) U/L Lipase 1998 H 466 H (23-300) U/L Radiology Exams: Radiology Procedures Category Date Time Status LIVER OR SPLEEN [US] Routine Exams 07/16/22 08:50 Completed Multi-Disciplinary Progress Notes: Multi-Disciplinary Progress Notes 07/17/22 12:11 Case Management Note by Josee Lim S/W PATIENT- SHE CONTINUES TO PLAN TO DC HOME TO HER PLF AT TIME OF DC WITH HER TO ASSIST NEEDED. SHE WAS OFFERED TREATMENT OPTIONS FOR HER ALCOHOL USE. PATIENT DENIES SHE HAS ANY ISSUES WITH DRINKING. SHE DECLINED ALL RESOURCES OFFERED Initialized on 07/17/22 12:11 - END OF NOTE Assessment/Plan (1) Acute alcoholic pancreatitis Current Visit: Yes Status: Acute Assessment & Plan: enzymes improving, continue NPO and repeat enzymes tomorrow. advance diet when enzymes normalize as they rebounded very high yesterday after po intake. patient c/o constipation, prn dulcolax ordered Code(s): K85.20 - ALCOHOL INDUCED ACUTE PANCREATITIS WITHOUT NECROSIS OR INFCT
[2022-07-18] MEDS: Protonix 40MG Tablet PO SCH (09:23)
[2022-07-18] MEDS: Effexor XR 75 MG PO SCH (09:24)
[2022-07-18] MEDS: PLAVIX Tablet PO SCH (09:24)
[2022-07-18] MEDS: Ativan 1 MG PO PRN (09:24)
[2022-07-18] MEDS: NORVASC 5 MG PO SCH (09:24)
[2022-07-18 16:20] LABS: 027 TOX PROD PRESUMPTIVE NEGATIVE (NEGATIVE); TOXIGENIC C. DIFF ORG NEGATIVE (NEGATIVE)
[2022-07-18] MEDS: Hydromorphone 1 mg/ml Injection IV PRN (21:44)
[2022-07-19] MEDS: Hydromorphone 1 mg/ml Injection IV PRN ×2 (01:35→05:35)
[2022-07-19] MEDS: Sodium Chloride 0.9% 1000 ML 1,000 ML IV SCH (01:45)
[2022-07-19 04:59] LABS: Absolute Neutrophil Ct (ANC) 3.76 x10^3/uL (1.4-6.9); BASOPHIL % 0.8 % (0.0-0.4); Basophil (Absolute #) 0.05 x10^3/uL (0-0.4); Eosinophil % 3.9 % (0.00-5.0); Eosinophil (Absolute #) 0.26 x10^3/uL (0-0.5); Hematocrit 39.4 % (35-47); Hemoglobin 13.1 g/dL (12.0-16.0); IMMATURE GRAN # 0.03 x10^3u/L (0.00-0.03); IMMATURE GRAN % 0.5 % (0.00-0.4); Lymphocyte (Absolute #) 1.83 x10^3/uL (1.0-4.6); Lymphocytes % 27.8 % (24.0-44.0); Mean Cell Volume 86.4 fL (78-100); Mean Corpuscular Hemoglobin 28.7 pg (26-32); Mean Corpuscular Hgb Concent. 33.2 g/dL (32-36); Mean Platelet Volume 10.3 fL (7.5-11.0); Monocyte (Absolute #) 0.66 x10^3/uL (0.0-1.3); Platelet Count 248 x10^3/uL (150-450); Red Blood Count 4.56 x10^6/uL (4.1-5.4); Red Cell Distribution Width 14.5 % (11.5-14.0); White Blood Count 6.6 x10^3/uL (4.0-10.5)
[2022-07-19 05:14] LABS: AMYLASE 125 U/L (30-110); LIPASE 832 U/L (23-300)
[2022-07-19 05:19] LABS: ALBUMIN 3.7 g/dL (3.5-5.0); ALKALINE PHOSPHATASE 285 U/L (38-126); ANION GAP 14.8 MEQ/L (5-15); BLOOD UREA NITROGEN 6 mg/dL (7-17); CHLORIDE 105 mmol/L (98-107); Calcium 8.8 mg/dL (8.4-10.2); Carbon Dioxide 21 mmol/L (22-30); Creatinine 1 0.59 mg/dL (0.52-1.04); EST GLOMERULAR FILTRATION RATE > 60.0 ML/MIN; Glucose 52 mg/dL (74-106); Potassium 3.5 mmol/L (3.5-5.1); SGOT/AST 88 U/L (14-36); SGPT/ALT 133 U/L (0-35); SODIUM 137 mmol/L (137-145)
[2022-07-19] MEDS: PLAVIX Tablet PO SCH (08:30)
[2022-07-19] MEDS: NEURONTIN PO SCH ×3 (08:31→21:16)
[2022-07-19] MEDS: Effexor XR 75 MG PO SCH (08:32)
[2022-07-19] MEDS: Protonix 40MG Tablet PO SCH (08:33)
[2022-07-19] MEDS: Lopressor 25MG Tab PO SCH ×2 (08:33→21:16)
--- NOTE | 2022-07-19 08:35 | PCM.NOTE ---
Date and Time: 07/19/22833 Subjective Assessment: patient doing well, pain is minimal. c/o tremor and requesting ativan and dilaudid for it, she is very sleepy this morning Objective Exam General Appearance: no apparent distress Neurologic Exam: alert, cooperative Respiratory Exam: normal breath sounds, lungs clear, No respiratory distress Cardiovascular Exam: regular rate/rhythm, normal heart sounds Gastrointestinal/Abdomen Exam: soft, No tenderness, No distention, No guarding, No rebound Extremity Exam: normal inspection, normal range of motion OBJECTIVE DATA Vital Signs: Vital Signs - 24 hr Temp Pulse Resp BP Pulse Ox 07/19/22 07:23 97.1 F 58 L 14 112/66 95 07/19/22 04:00 97.1 F 70 15 111/66 95 07/18/22 23:05 96.9 F 82 16 106/71 94 L 07/18/22 19:55 97.5 F 72 16 122/75 95 07/18/22 16:00 98.4 F 72 16 117/73 93 L 07/18/22 11:30 98.0 F 65 16 126/60 94 L Pain Assessment - Last Documented Pain Intensity 2 Pain Scale Used 0-10 Pain Scale Intake and Output: Intake & Output 07/16/22 07/17/22 07/18/22 07/19/22 11:59 11:59 11:59 11:59 Intake Total 3462 4921 2381 3368 Output Total 6200 6302 3800 [facility]3342 -6670 -2061 1141 Lab Results: Lab Results-Last 24 Hours 07/18/22 07/19/22 07/19/22 Range/Units 15:30 04:30 04:30 WBC 6.6 (4.0-10.5) x10^3/uL RBC 4.56 (4.1-5.4) x10^6/uL Hgb 13.1 (12.0-16.0) g/dL Hct 39.4 (35-47) % MCV 86.4 (78-100) fL MCH 28.7 (26-32) pg MCHC 33.2 (32-36) g/dL RDW 14.5 H (11.5-14.0) % Plt Count 248 (150-450) x10^3/uL MPV 10.3 (7.5-11.0) fL Gran % 57.0 (36.0-66.0) % Immature Gran % (Auto) 0.5 H (0.00-0.4) % Nucleat RBC Rel Count 0.0 (0.00-0.1) % Eos # (Auto) 0.26 (0-0.5) x10^3/uL Immature Gran # (Auto) 0.03 (0.00-0.03) x10^3u/L Absolute Lymphs (auto) 1.83 (1.0-4.6) x10^3/uL Absolute Monos (auto) 0.66 (0.0-1.3) x10^3/uL Absolute Nucleated RBC 0.00 (0.00-0.01) x10^3u/L Lymphocytes % 27.8 (24.0-44.0) % Monocytes % 10.0 (0.0-12.0) % Eosinophils % 3.9 (0.00-5.0) % Basophils % 0.8 (0.0-0.4) % Absolute Granulocytes 3.76 (1.4-6.9) x10^3/uL Basophils # 0.05 (0-0.4) x10^3/uL Sodium 137 (137-145) mmol/L Potassium 3.5 (3.5-5.1) mmol/L Chloride 105 (98-107) mmol/L Carbon Dioxide 21 L (22-30) mmol/L Anion Gap 14.8 (5-15) MEQ/L BUN 6 L (7-17) mg/dL Creatinine 0.59 (0.52-1.04) mg/dL Estimated GFR > 60.0 ML/MIN Glucose 52 L (74-106) mg/dL Calcium 8.8 (8.4-10.2) mg/dL Total Bilirubin 0.50 (0.2-1.3) mg/dL AST 88 H (14-36) U/L ALT 133 H (0-35) U/L Alkaline Phosphatase 285 H (38-126) U/L Serum Total Protein 7.0 (6.3-8.2) g/dL Albumin 3.7 (3.5-5.0) g/dL Amylase (30-110) U/L Lipase (23-300) U/L C. difficile Screen NEGATIVE (NEGATIVE) C.difficile 027-NAP1-B1 PRESUMPTIVE NEGATIVE (NEGATIVE) 07/19/22 Range/Units 04:30 WBC (4.0-10.5) x10^3/uL RBC (4.1-5.4) x10^6/uL Hgb (12.0-16.0) g/dL Hct (35-47) % MCV (78-100) fL MCH (26-32) pg MCHC (32-36) g/dL RDW (11.5-14.0) % Plt Count (150-450) x10^3/uL MPV (7.5-11.0) fL Gran % (36.0-66.0) % Immature Gran % (Auto) (0.00-0.4) % Nucleat RBC Rel Count (0.00-0.1) % Eos # (Auto) (0-0.5) x10^3/uL Immature Gran # (Auto) (0.00-0.03) x10^3u/L Absolute Lymphs (auto) (1.0-4.6) x10^3/uL Absolute Monos (auto) (0.0-1.3) x10^3/uL Absolute Nucleated RBC (0.00-0.01) x10^3u/L Lymphocytes % (24.0-44.0) % Monocytes % (0.0-12.0) % Eosinophils % (0.00-5.0) % Basophils % (0.0-0.4) % Absolute Granulocytes (1.4-6.9) x10^3/uL Basophils # (0-0.4) x10^3/uL Sodium (137-145) mmol/L Potassium (3.5-5.1) mmol/L Chloride (98-107) mmol/L Carbon Dioxide (22-30) mmol/L Anion Gap (5-15) MEQ/L BUN (7-17) mg/dL Creatinine (0.52-1.04) mg/dL Estimated GFR ML/MIN Glucose (74-106) mg/dL Calcium (8.4-10.2) mg/dL Total Bilirubin (0.2-1.3) mg/dL AST (14-36) U/L ALT (0-35) U/L Alkaline Phosphatase (38-126) U/L Serum Total Protein (6.3-8.2) g/dL Albumin (3.5-5.0) g/dL Amylase 125 H (30-110) U/L Lipase 832 H (23-300) U/L C. difficile Screen (NEGATIVE) C.difficile 027-NAP1-B1 (NEGATIVE) Multi-Disciplinary Progress Notes: Multi-Disciplinary Progress Notes 07/18/22 09:16 Case Management Note by Josee Lim NO CHANGE IN DC PLANS AT THIS TIME Initialized on 07/18/22 09:16 - END OF NOTE Assessment/Plan (1) Acute alcoholic pancreatitis Current Visit: Yes Status: Acute Assessment & Plan: advance to clears, enzymes trending down with some fluctuations. will attempt to transition to po meds to avoid sedation. Code(s): K85.20 - ALCOHOL INDUCED ACUTE PANCREATITIS WITHOUT NECROSIS OR INFCT
[2022-07-19] MEDS: NORVASC 5 MG PO SCH (08:37)
[2022-07-19] MEDS: Ativan 0.5 MG PO PRN ×2 (14:09→21:15)
[2022-07-19] MEDS: NORCO 5/325 MG PO PRN ×2 (15:32→20:00)
[2022-07-19] MEDS: ANASPAZ 0.125 MG PO PRN (16:18)
[2022-07-19] MEDS: Wellbutrin XL 150 MG PO SCH (21:16)
[2022-07-19] MEDS: ZOCOR 20MG PO SCH (21:16)
[2022-07-20] MEDS: Sodium Chloride 0.9% 1000 ML 1,000 ML IV SCH ×2 (00:11→19:35)
[2022-07-20] MEDS: NORCO 5/325 MG PO PRN (01:54)
[2022-07-20] MEDS: ANASPAZ 0.125 MG PO PRN ×2 (03:37→21:12)
[2022-07-20 05:40] LABS: Absolute Neutrophil Ct (ANC) 3.17 x10^3/uL (1.4-6.9); BASOPHIL % 0.7 % (0.0-0.4); Basophil (Absolute #) 0.04 x10^3/uL (0-0.4); Eosinophil % 5.4 % (0.00-5.0); Eosinophil (Absolute #) 0.32 x10^3/uL (0-0.5); Hematocrit 38.3 % (35-47); Hemoglobin 12.8 g/dL (12.0-16.0); IMMATURE GRAN # 0.02 x10^3u/L (0.00-0.03); IMMATURE GRAN % 0.3 % (0.00-0.4); Lymphocyte (Absolute #) 1.79 x10^3/uL (1.0-4.6); Lymphocytes % 29.9 % (24.0-44.0); Mean Cell Volume 85.3 fL (78-100); Mean Corpuscular Hemoglobin 28.5 pg (26-32); Mean Corpuscular Hgb Concent. 33.4 g/dL (32-36); Monocyte (Absolute #) 0.64 x10^3/uL (0.0-1.3); Monocytes % 10.7 % (0.0-12.0); Platelet Count 265 x10^3/uL (150-450); Red Blood Count 4.49 x10^6/uL (4.1-5.4); Red Cell Distribution Width 14.5 % (11.5-14.0)
[2022-07-20 06:14] LABS: ALBUMIN 3.9 g/dL (3.5-5.0); ALKALINE PHOSPHATASE 267 U/L (38-126); AMYLASE 78 U/L (30-110); ANION GAP 12.2 MEQ/L (5-15); BLOOD UREA NITROGEN 4 mg/dL (7-17); CHLORIDE 100 mmol/L (98-107); Calcium 9.4 mg/dL (8.4-10.2); Carbon Dioxide 29 mmol/L (22-30); Creatinine 1 0.62 mg/dL (0.52-1.04); EST GLOMERULAR FILTRATION RATE > 60.0 ML/MIN; Glucose 88 mg/dL (74-106); LIPASE 235 U/L (23-300); SGOT/AST 51 U/L (14-36); SGPT/ALT 102 U/L (0-35); SODIUM 137 mmol/L (137-145); Total Protein 7.5 g/dL (6.3-8.2)
[2022-07-20] MEDS: Lopressor 25MG Tab PO SCH ×2 (09:57→21:12)
[2022-07-20] MEDS: NEURONTIN PO SCH ×3 (09:57→21:12)
[2022-07-20] MEDS: Protonix 40MG Tablet PO SCH (09:57)
[2022-07-20] MEDS: PLAVIX Tablet PO SCH (09:57)
[2022-07-20] MEDS: NORVASC 5 MG PO SCH (09:59)
[2022-07-20] MEDS: Effexor XR 75 MG PO SCH (09:59)
[2022-07-20] MEDS: BENADRYL 12.5 MG/5 ML PO PRN ×3 (10:10→21:11)
[2022-07-20] MEDS: OLOPATADINE OP SCH ×2 (15:48→21:15)
[2022-07-20] MEDS: Wellbutrin XL 150 MG PO SCH (21:12)
[2022-07-20] MEDS: ZOCOR 20MG PO SCH (21:12)
[2022-07-21 05:47] LABS: ALBUMIN 3.9 g/dL (3.5-5.0); ALKALINE PHOSPHATASE 228 U/L (38-126); AMYLASE 90 U/L (30-110); ANION GAP 13.8 MEQ/L (5-15); BLOOD UREA NITROGEN 8 mg/dL (7-17); CHLORIDE 101 mmol/L (98-107); Calcium 9.1 mg/dL (8.4-10.2); Carbon Dioxide 29 mmol/L (22-30); Creatinine 1 0.62 mg/dL (0.52-1.04); EST GLOMERULAR FILTRATION RATE > 60.0 ML/MIN; Glucose 105 mg/dL (74-106); LIPASE 431 U/L (23-300); Potassium 3.6 mmol/L (3.5-5.1); SGOT/AST 36 U/L (14-36); SGPT/ALT 73 U/L (0-35); SODIUM 141 mmol/L (137-145); Total Protein 7.3 g/dL (6.3-8.2)
[2022-07-21] MEDS: PLAVIX Tablet PO SCH (10:47)
[2022-07-21] MEDS: NEURONTIN PO SCH ×3 (10:47→21:45)
[2022-07-21] MEDS: Lopressor 25MG Tab PO SCH ×2 (10:49→21:46)
[2022-07-21] MEDS: Effexor XR 75 MG PO SCH (10:49)
[2022-07-21] MEDS: Protonix 40MG Tablet PO SCH (10:49)
[2022-07-21] MEDS: NORVASC 5 MG PO SCH (10:51)
[2022-07-21] MEDS: OLOPATADINE OP SCH ×2 (10:53→21:46)
[2022-07-21] MEDS: ZOCOR 20MG PO SCH (21:46)
[2022-07-21] MEDS: Wellbutrin XL 150 MG PO SCH (21:46)
[2022-07-22 05:36] LABS: Hematocrit 40.4 % (35-47); Hemoglobin 13.1 g/dL (12.0-16.0); Mean Cell Volume 87.6 fL (78-100); Mean Corpuscular Hemoglobin 28.4 pg (26-32); Mean Corpuscular Hgb Concent. 32.4 g/dL (32-36); Mean Platelet Volume 9.8 fL (7.5-11.0); Platelet Count 280 x10^3/uL (150-450); Red Blood Count 4.61 x10^6/uL (4.1-5.4); Red Cell Distribution Width 14.6 % (11.5-14.0); White Blood Count 5.8 x10^3/uL (4.0-10.5)
[2022-07-22 06:53] LABS: ALKALINE PHOSPHATASE 209 U/L (38-126); AMYLASE 105 U/L (30-110); ANION GAP 12.6 MEQ/L (5-15); BLOOD UREA NITROGEN 6 mg/dL (7-17); CHLORIDE 102 mmol/L (98-107); Calcium 9.2 mg/dL (8.4-10.2); Carbon Dioxide 30 mmol/L (22-30); Creatinine 1 0.68 mg/dL (0.52-1.04); EST GLOMERULAR FILTRATION RATE > 60.0 ML/MIN; Glucose 90 mg/dL (74-106); LIPASE 469 U/L (23-300); SGOT/AST 32 U/L (14-36); SGPT/ALT 61 U/L (0-35); SODIUM 141 mmol/L (137-145); Total Protein 7.4 g/dL (6.3-8.2)
--- NOTE | 2022-07-22 08:55 | PCM.DS ---
Discharge Summary Date of Admission: 07/15/22 18:02 Admitting Physician: ALEXI VILLARREAL Consults: Consults on Case 07/21/22 09:47 Consult Neurology ROUTINE Primary Care Provider: ALEXI VILLARREAL Allergies Allergies No Known Drug Allergies Allergy (Verified 07/14/22 15:56) Hospital Summary - Hospital Course Hospital Course: patient admitted with acute pancreatitis, hx of cholecystectomy. she had some alcohol use prior to this incident. has been seen at in the remote past and had ERCP and EUS. she had some hallucinations but they have resolved, felt to be related to medication interaction with narcotics, ativan and benadryl. she is tolerating po with mild abdominal discomfort, no vomiting and ready for di scharge. labs are good - Vitals & Intake/Output Vital Signs: Vital Signs Temperature 96.9 F 07/22/22 07:13 Pulse Rate 71 07/22/22 07:13 Respiratory Rate 18 07/22/22 07:13 Blood Pressure 128/85 07/22/22 07:13 O2 Sat by Pulse Oximetry 96 07/22/22 07:13 Intake & Output: Intake & Output 07/19/22 07/20/22 07/21/22 07/22/22 11:59 11:59 11:59 11:59 Intake Total 3368 3160 1180 1700 Balance 3368 3160 1180 1700 Weight 77.5 kg - Lab Result Diagrams: 07/22/22 05:25 07/22/22 05:25 Lab Results-Last 24 Hrs: Lab Results-Last 24 Hours 07/22/22 07/22/22 Range/Units 05:25 05:25 WBC 5.8 (4.0-10.5) x10^3/uL RBC 4.61 (4.1-5.4) x10^6/uL Hgb 13.1 (12.0-16.0) g/dL Hct 40.4 (35-47) % MCV 87.6 (78-100) fL MCH 28.4 (26-32) pg MCHC 32.4 (32-36) g/dL RDW 14.6 H (11.5-14.0) % Plt Count 280 (150-450) x10^3/uL MPV 9.8 (7.5-11.0) fL Sodium 141 (137-145) mmol/L Potassium 4.0 (3.5-5.1) mmol/L Chloride 102 (98-107) mmol/L Carbon Dioxide 30 (22-30) mmol/L Anion Gap 12.6 (5-15) MEQ/L BUN 6 L (7-17) mg/dL Creatinine 0.68 (0.52-1.04) mg/dL Estimated GFR > 60.0 ML/MIN Glucose 90 (74-106) mg/dL Calcium 9.2 (8.4-10.2) mg/dL Total Bilirubin 0.30 (0.2-1.3) mg/dL AST 32 (14-36) U/L ALT 61 H (0-35) U/L Alkaline Phosphatase 209 H (38-126) U/L Serum Total Protein 7.4 (6.3-8.2) g/dL Albumin 4.0 (3.5-5.0) g/dL Amylase 105 (30-110) U/L Lipase 469 H (23-300) U/L - Procedures and Test Procedures and Tests throughout Hospitalization: Therapy Orders & Screens 07/15/22 07:31 Oxygen NASAL CANNULA 2 lpm Comment: Diagnosis: pancreatitis Discharge Exam General Appearance: no apparent distress Neurologic Exam: alert, oriented x 3, cooperative Respiratory Exam: normal breath sounds, lungs clear, No respiratory distress Cardiovascular Exam: regular rate/rhythm, normal heart sounds Gastrointestinal/Abdomen Exam: soft, No tenderness, No distention, No mass, No rebound Extremity Exam: normal inspection, normal range of motion Skin Exam: normal color, warm, dry Final Diagnosis/Problem List - Final Discharge Diagnosis/Problem (1) Acute alcoholic pancreatitis Current Visit: Yes Status: Acute Assessment & Plan: resolved at this time, labs are reassuring, has a minimal persistent elevation of lipase but clinically her abdominal exam is benign and she is tolerating po intake. I counseled her on complete alcohol avoidance and a bland low fat diet upon discharge. she voiced understanding of those instructions and will be referred to followup at [facility] upon discharge. Code(s): K85.20 - ALCOHOL INDUCED ACUTE PANCREATITIS WITHOUT NECROSIS OR INFCT - Discharge Disposition: Home, Self-Care Condition: Stable Prescriptions: Continue Pantoprazole Sodium [Protonix] 40 mg PO DAILY Gabapentin [Neurontin] 600 mg PO UD Hyoscyamine Sulfate [Levsin] 0.125 mg PO QIDPRN PRN PRN Reason: ibs Rosuvastatin Calcium [Crestor] 10 mg PO HS Ezetimibe 10 mg [Zetia 10 MG] 1 tab PO HS Bupropion HCl Xl 150 mg [Wellbutrin XL 150 MG] 300 mg PO HS Clopidogrel Bisulfate [PLAVIX Tablet] 37.5 mg PO DAILY Venlafaxine HCl [Effexor Xr] 150 mg PO DAILY Metoprolol Tartrate 25 mg [Lopressor 25MG Tab] 25 mg PO BID #10 tab Amlodipine Besylate 5 mg [Norvasc 5 mg] 2.5 mg PO DAILY Gabapentin [Neurontin ] 900 mg PO HS Follow up with: KIMBERLY KELLY [NON-STAFF PHY W/O PRIVILEGES] - Call for Appointment (please call and schedule patient with [facility] gastroenterology for followup and to discuss repeat ERCP exam) ALEXI VILLARREAL MD [Primary Care Provider] - 1 Week
[2022-07-22] MEDS: Effexor XR 75 MG PO SCH (10:02)
[2022-07-22] MEDS: Protonix 40MG Tablet PO SCH (10:02)
[2022-07-22] MEDS: NORVASC 5 MG PO SCH (10:03)
[2022-07-22] MEDS: NEURONTIN PO SCH (10:04)
[2022-07-22] MEDS: Lopressor 25MG Tab PO SCH (10:05)
[2022-07-22] MEDS: PLAVIX Tablet PO SCH (10:05)
[2022-07-22] MEDS: OLOPATADINE OP SCH (10:06)
[2022-07-22 10:54] VITALS: BP 135/80; PULSE 70; O2SAT 97
== END 2022-07-22 13:08 | disposition home or self-care (01) | DRG 440 ==
LOC: ED 15:41 → MED SURG 21:47 → ED 07-15 15:41 → OBSVTOIN 07-15 18:02 → MED SURG 07-15 21:47
PROVIDERS: ADMIT Family Medicine; ATTEND Family Medicine
DX: K85.20 Alcohol induced acute pancreatitis without necrosis or infection (principal); I10 Essential (primary) hypertension; K21.9 Gastro-esophageal reflux disease without esophagitis; E78.5 Hyperlipidemia, unspecified; R74.8 Abnormal levels of other serum enzymes; R07.9 Chest pain, unspecified; R19.7 Diarrhea, unspecified; F10.90 Alcohol use, unspecified, uncomplicated; M79.7 Fibromyalgia; Z79.01 Long term (current) use of anticoagulants; Z79.899 Other long term (current) drug therapy; Z20.828 Contact with and (suspected) exposure to other viral communicable diseases
CPT/HCPCS: 0241U; 36415; 74177; 76705; 80053; 81001; 82150; 82947; 83690; 84132; 84484; 85025; 85027; 85610; 85730; 87493; 93005; 94760; 96360; 96374; 96375; 99285; G0378; J1170; J1885; J2060; J2405; J3010; A9270-GY